=== PATIENT | female | born 1950 | race Hispanic/Latino ===

== ENCOUNTER 2017-01-20 20:08 | Emergency (ER) | payer MEDICARE, OTHER ==
[2017-01-20 21:28] LABS: Bilirubin Negative (Negative); Blood, Urine Negative (Negative); Glucose, Urine (Dipstick) Negative (Negative); Ketone, Urine Trace mg/dL (Negative); Nitrite Negative (Negative); Protein, Urine (Dipstick) Negative (Neg-Trace); Urobilinogen 0.2 mg/dL (0.2-1.0)
[2017-01-20 21:33] LABS: Bacteria/HPF 2+ HPF (None Seen); Hyaline Casts/LPF 0-3 HYALINE CAST LPF (0-3 Hyaline); RBC/HPF 0-3 HPF (0-3)
[2017-01-20] MEDS ORDERED: Ciprofloxacin 500 MG TAB ONE (21:52)
== END 2017-01-20 22:18 | disposition home or self-care (01) ==
LOC: SCSER 20:08
DX: G89.29 Other chronic pain (principal); M54.5 Low back pain; E78.5 Hyperlipidemia, unspecified; E11.9 Type 2 diabetes mellitus without complications; I11.0 Hypertensive heart disease with heart failure; I50.9 Heart failure, unspecified; F32.9 Major depressive disorder, single episode, unspecified
CPT/HCPCS: 81003; 81015; 87086; 96372; J2270

== ENCOUNTER 2017-05-30 14:38 | Outpatient (CLI) | payer MEDICARE, MEDICAID | END 2017-05-30 14:39 | disposition home or self-care (01) | LOC: CTENTCT 14:38 | PROVIDERS: ATTEND Specialist | DX: J32.8 Other chronic sinusitis (principal) | CPT/HCPCS: 70486 ==

== ENCOUNTER 2017-07-22 09:47 | Outpatient (CLI) | payer MEDICARE, MEDICAID ==
--- NOTE | 2017-07-22 12:10 | MRI ---
MRI BRAIN WITH AND WITHOUT IV CONTRAST: Date: 07/22/17 HISTORY: Ataxia. COMPARISON: 10/20/16. FINDINGS: No evidence of infarct, hemorrhage, mass, midline shift, or abnormal extra-axial fluid collections ar e seen. The ventricular size is normal and the basilar cisterns are patent. A partially empty sella i s again seen. There is a small amount of fluid in the right mastoid air cells. IMPRESSION: Normal MRI of the brain. Stable exam since 10/20/16. POS: [facility]
== END 2017-07-22 09:48 | disposition home or self-care (01) ==
LOC: SCSMRI 09:47
PROVIDERS: ATTEND Psychiatry & Neurology Neurology
DX: R27.0 Ataxia, unspecified (principal)
CPT/HCPCS: 70553; 82565

== ENCOUNTER 2017-08-27 12:03 | Outpatient (CLI) | payer MEDICARE, MEDICAID | END 2017-08-27 12:04 | disposition home or self-care (01) | LOC: BICMAMMO 12:03 | PROVIDERS: ATTEND Physician Assistant | DX: Z12.31 Encounter for screening mammogram for malignant neoplasm of breast (principal); R92.1 Mammographic calcification found on diagnostic imaging of breast | CPT/HCPCS: 77063; 77067 ==

== ENCOUNTER 2017-10-06 12:56 | Emergency (ER) | payer MEDICARE, MEDICAID | END 2017-10-06 14:12 | disposition left against medical advice (07) | LOC: ERS 12:56 | DX: Z53.21 Procedure and treatment not carried out due to patient leaving prior to being seen by health care provider (principal) ==

== ENCOUNTER 2017-10-06 13:47 | Emergency (ER) | payer MEDICARE, MEDICAID ==
[2017-10-06 14:41] LABS: #Eosinphils 0.1 thou/uL (0.0-0.7); #Lymphocytes 1.4 thou/uL (1.20-3.40); #Monocytes 0.3 thou/uL (0.11-0.59); #Neutrophils 3.5 thou/uL (1.40-6.50); %Basophils 0.8 % (0.0-1.0); %Eosinophils 2.7 % (0.0-10.0); %Neutrophils 64.5 % (42.0-75.0); Hemoglobin 10.7 g/dL (12.0-16.0); Mean Corpuscular HGB CONC 32.9 g/dL (32.0-36.0); Mean Corpuscular Hemoglobin 28.1 pg (27.0-31.0); Mean Corpuscular Volume 85.3 fL (78.0-98.0); Mean Platelet Volume 9.8 fL (7.4-10.4); Platelet Count 158 thou/uL (130-400); Red Blood Cell (RBC) Count 3.83 mill/uL (4.20-5.40); White Blood Cell (WBC) Count 5.5 thou/uL (4.8-10.8)
[2017-10-06 14:54] LABS: ALT (SGPT) 14 U/L (8-55); AST (SGOT) 22 U/L (5-34); Albumin 3.8 g/dL (3.4-4.8); Alkaline Phosphatase 95 U/L (40-150); Anion Gap 11 mmol/L (10-20); BUN (Urea Nitrogen) 18 mg/dL (9.8-20.1); Bilirubin, Total 0.4 mg/dL (0.2-1.2); Calc. Creatinine Clearance 0 mL/min (70-130); Calcium 8.5 mg/dL (7.8-10.44); Carbon Dioxide 27 mmol/L (23-31); Chloride 106 mmol/L (98-107); Estimated GFR-MDRD 76; Globulin 1.9 g/dL (2.4-3.5); Glucose 147 mg/dL (80-115); Potassium 4.1 mmol/L (3.5-5.1); Protein, Total 5.7 g/dL (6.0-8.3); Sodium 140 mmol/L (136-145)
[2017-10-06 14:58] LABS: CKMB 1.9 ng/mL (0-6.6); Troponin I Less than 0.010 ng/mL (< 0.028)
[2017-10-06 15:17] LABS: Bilirubin Negative (Negative); Blood, Urine Negative (Negative); Clarity Clear (Clear); Glucose, Urine (Dipstick) Negative (Negative); Leukocyte Negative (Negative); Nitrite Negative (Negative); Protein, Urine (Dipstick) Negative (Neg-Trace); Specific Gravity, Urine 1.008 (1.002-1.036); Urobilinogen 0.2 mg/dL (0.2-1.0); pH, Urine 5.5 (5.0-9.0)
== END 2017-10-06 15:20 | disposition home or self-care (01) ==
LOC: SCSER 13:47
DX: D64.9 Anemia, unspecified (principal); I10 Essential (primary) hypertension; E78.00 Pure hypercholesterolemia, unspecified; E11.9 Type 2 diabetes mellitus without complications
CPT/HCPCS: 80053; 81003; 82553; 84484; 85025; 93005

== ENCOUNTER 2017-12-16 10:51 | Observation (INO) | payer MEDICARE, MEDICAID ==
[2017-12-16 11:16] LABS: #Eosinphils 0.1 thou/uL (0.0-0.7); #Monocytes 0.3 thou/uL (0.11-0.59); #Neutrophils 2.4 thou/uL (1.40-6.50); %Basophils 0.5 % (0.0-1.0); %Eosinophils 2.8 % (0.0-10.0); %Lymphocytes 27.1 % (21.0-51.0); %Monocytes 8.1 % (0.0-10.0); %Neutrophils 61.4 % (42.0-75.0); Hemoglobin 12.2 g/dL (12.0-16.0); Mean Corpuscular Hemoglobin 28.8 pg (27.0-31.0); Mean Corpuscular Volume 90.2 fL (78.0-98.0); Mean Platelet Volume 8.6 fL (7.4-10.4); Platelet Count 179 thou/uL (130-400); RBC Distribution Width 12.6 % (11.5-14.5); Red Blood Cell (RBC) Count 4.22 mill/uL (4.20-5.40); White Blood Cell (WBC) Count 3.9 thou/uL (4.8-10.8)
--- NOTE | 2017-12-16 11:39 | RAD ---
CHEST 1 VIEW PORTABLE: Date: 12/16/17 HISTORY: 67-year-old female with history of syncope. COMPARISON: 10/19/16. FINDINGS: Heart size is within normal limits. No confluent pneumonia, overt edema, or pleural effusion. IMPRESSION: No acute intrathoracic disease. Atherosclerosis of aorta. POS: [facility]
[2017-12-16 11:44] LABS: CKMB 1.5 ng/mL (0-6.6); Troponin I Less than 0.010 ng/mL (< 0.028)
[2017-12-16 12:53] LABS: Albumin 3.9 g/dL (3.4-4.8)
[2017-12-16 12:54] LABS: Chloride 104 mmol/L (98-107); Potassium 4.1 mmol/L (3.5-5.1)
[2017-12-16 12:55] LABS: Calcium 8.8 mg/dL (7.8-10.44); Sodium 140 mmol/L (136-145)
[2017-12-16 12:56] LABS: Globulin 2.4 g/dL (2.4-3.5); Glucose 125 mg/dL (80-115); Protein, Total 6.3 g/dL (6.0-8.3)
[2017-12-16 12:57] LABS: Anion Gap 11 mmol/L (10-20); Carbon Dioxide 29 mmol/L (23-31)
[2017-12-16 12:58] LABS: Bilirubin, Total 0.4 mg/dL (0.2-1.2)
[2017-12-16 12:59] LABS: Alkaline Phosphatase 107 U/L (40-150); Calc. Creatinine Clearance 0 mL/min (70-130); Estimated GFR-MDRD 64
[2017-12-16 13:00] LABS: BUN (Urea Nitrogen) 13 mg/dL (9.8-20.1)
[2017-12-16 13:01] LABS: AST (SGOT) 23 U/L (5-34)
[2017-12-16 13:02] LABS: ALT (SGPT) 16 U/L (8-55); CK (CPK) 130 U/L (29-168)
[2017-12-16 13:11] LABS: Bilirubin Negative (Negative); Blood, Urine Negative (Negative); Clarity CLEAR (Clear); Glucose, Urine (Dipstick) Negative (Negative); Leukocyte Negative (Negative); Nitrite Negative (Negative); Protein, Urine (Dipstick) Negative (Neg-Trace); Specific Gravity, Urine 1.007 (1.002-1.036); Urobilinogen 0.2 mg/dL (0.2-1.0)
[2017-12-16 15:07] LABS: Troponin I Less than 0.010 ng/mL (< 0.028)
[2017-12-16 15:31] VITALS: BMI 36.3
[2017-12-16] MEDS ORDERED: Nitroglycerin 0.4 MG TAB (25 Tab Bottle) PO PRN (17:35)
[2017-12-16] MEDS ORDERED: Insulin Regular 300 UNITS/3 ML VIAL SC PRN ×2 (17:35)
[2017-12-16] MEDS ORDERED: Dextrose 50% Abboject 50 ML SYRINGE SLOW IVP PRN (17:35)
[2017-12-16] MEDS ORDERED: Dextrose 5% in Water 1,000 ML IV PRN (17:35)
[2017-12-16] MEDS ORDERED: Senokot 8.6 MG TAB PO PRN (17:36)
[2017-12-16] MEDS ORDERED: Acetaminophen 325 MG TAB PO PRN (17:36)
[2017-12-16] MEDS ORDERED: Calcium Carbonate 500 MG ChewTAB PO PRN (17:36)
[2017-12-16] MEDS ORDERED: HYDROcodone/Acetaminophen 5/325 mg Tablet PO PRN (17:42)
[2017-12-16 17:51] LABS: Troponin I Less than 0.010 ng/mL (< 0.028)
--- NOTE | 2017-12-16 18:00 | HP ---
DATE OF ADMISSION: 12/16/2017 PRIMARY CARE PHYSICIAN: Dr. Candy Islas. PRIMARY TRAFFIC OPERATIONS MANAGER: Dr. Garces. CHIEF COMPLAINT: Chest discomfort along with syncopal episode earlier today. HISTORY OF PRESENT ILLNESS: The patient is a 67-year-old female with hypertension; diabetes mellitus, type 2; presented to the emergency room with above complaints. Approximately 2 weeks ago, the patient had a stress test at Dr. Garces's office that was abnormal per patient report. She has been having exertional shortness of breath along with chest pressure on and off over the last 3-4 weeks. Yesterday, she had a brief episode of near syncope. She had anothe r episode in which she lost consciousness for 1-2 seconds. She denies any warning symptoms before th e episodes. She was trying to sit in the car at that time. She continues to have on and off chest p ressure without any palpitations. She has been feeling generally weak. The family also noticed that heart rate is in 40s, especially in the morning. No double vision, blurring of vision, facial asymm etry, weakness, numbness of any of the extremities more than the other reported. In the emergency room, her initial vital signs showed temperature 99.2, respiration 18, pulse rate of 70, blood pressure of 166/86 with O2 saturation 98% on room air. Her EKG showed sinus rhythm withou t significant ST-T wave changes. Her troponins were in normal range. PAST MEDICAL HISTORY: 1. Hypertension. 2. Diabetes mellitus, type 2. 3. Dyslipidemia. 4. Chronic low back pain. 5. History of H. pylori infection. 6. Gastroesophageal reflux disease. 7. Anxiety, depression. PAST SURGICAL HISTORY: Hysterectomy. ALLERGIES: The patient is allergic to AMOXICILLIN. CURRENT HOME MEDICATIONS: Family to bring the accurate list of medication. She is unable to recall any of her home medications. SOCIAL HISTORY: She currently lives at home. No tobacco, alcohol or drug use. FAMILY HISTORY: Positive for diabetes and hypertension. REVIEW OF SYSTEMS: The following complete review of systems was negative, unless otherwise mentioned in the HPI or below: Constitutional: Weight loss or gain, ability to conduct usual activities. Sk in: Rash, itching. Eyes: Double vision, pain. ENT/Mouth: Nose bleeding, neck stiffness, pain, te nderness. Cardiovascular: Palpitations, dyspnea on exertion, orthopnea. Respiratory: Shortness of breath, wheezing, cough, hemoptysis, fever or night sweats. Gastrointestinal: Poor appetite, abdom inal pain, heartburn, nausea, vomiting, constipation, or diarrhea. Genitourinary: Urgency, frequenc y, dysuria, nocturia. Musculoskeletal: Pain, swelling. Neurologic/Psychiatric: Anxiety, depressio n. Allergy/Immunologic: Skin rash, bleeding tendency. PHYSICAL EXAMINATION: VITAL SIGNS: As discussed above. GENERAL: A 67-year-old female, in no apparent distress. HEENT: Head atraumatic, normocephalic. Sclerae are anicteric. Moist mucous membrane, no oral lesio n. NECK: Supple, no JVD, no carotid bruit. LUNGS: Clear to auscultation bilaterally. No wheezing, rales or rhonchi. HEART: S1, S2 present. Regular rate and rhythm. No murmur, rubs, or gallops appreciated. ABDOMEN: Soft, nontender, bowel sounds present. EXTREMITIES: No edema or calf tenderness. NEUROLOGIC: Grossly nonfocal, moves all four extremities. Power was 5/5 in all extremities. Finger -to-nose test was normal. PSYCHIATRY: Alert, awake, oriented x3. SKIN: Warm and dry. LYMPH NODES: No palpable lymph nodes in the neck. PERIPHERAL VASCULAR: Radial pulses palpable bilaterally. MUSCULOSKELETAL: No joint swelling or tenderness. LABORATORY AND X-RAY FINDINGS: CBC showed WBC 3.9 with hemoglobin 12.2, platelet 179. Chemistries s howed sodium 140, potassium 4.1, chloride 104, bicarbonate 29, BUN 13, creatinine 0.88. LFTs in norm al range. Magnesium 2.0. Troponin negative. Urinalysis was negative. Chest x-ray by my review was negative for infiltrate. EKG by my review showed sinus rhythm. IMPRESSION: 1. Chest discomfort with syncope in a 67-year-old female with hypertension and diabetes mellitus, ty pe 2. Per patient report, she had a negative stress test recently. The patient will be kept n.p.o. past midnight and Cardiology will be consulted. We will continue aspirin. We will resume her home m edications once confirmed. 2. Hypertension. We will continue to monitor. Home medications unavailable at this time. 3. Diabetes mellitus, type 2. We will start insulin sliding scale. 4. Obesity with a BMI of 36.4. Lifestyle modification emphasized. 5. Chronic kidney disease, stage 2. 6. Chronic low back pain. 7. Gastroesophageal reflux disease. We will start her on H2 blockers. 8. Anxiety, depression. The patient denies any suicidal ideation. Plan of care was discussed with the patient and the family in detail. They stated understanding.
--- NOTE | 2017-12-16 18:39 | CON ---
DATE OF CONSULTATION: 12/16/2017 REASON FOR CONSULTATION: ? syncope. HISTORY OF PRESENT ILLNESS: Ms. Moore is a pleasant 67-year-old woman who I have seen and evaluat ed in the past. She had shortness of breath in the past. She underwent a noninvasive stress study t hat was felt to be positive for ischemia. I called her on Friday and discussed the angiography. I d id discuss this with her daughter. Ms. Moore has been in normal state of health. No chest pain or pressure noted. She did have an e pisode of syncope, although the episode is somewhat vague. She was in the past passed out for less than 2 seconds and came to. She presented to the emergency room and was subsequently admitted. CK and troponins have so far been negative. PAST MEDICAL HISTORY: Recent stress test dated 10/27/2017 showed anterior wall ischemia. PHYSICAL EXAMINATION: VITAL SIGNS: Blood pressure is 154/67, pulse 60, temperature afebrile. GENERAL: Patient is a pleasant female who is in no acute distress. The patient appears her stated age. NEUROLOGIC: The patient is alert and oriented times 3 with no focal neurologic deficits. HEENT: Sclerae without icterus. Mouth has moist mucous membranes with normal pallor. NECK: No JVD. Carotid upstroke brisk. No bruits bilaterally. LUNGS: Clear to auscultation with unlabored respirations. BACK: No scoliosis or kyphosis. CARDIAC: Regular rate and rhythm with normal S1 and S2. No S3 or S4 noted. No significant rubs, murmurs, thrills, or gallops noted throughout the precordium. PMI is not displa alecia. There is no parasternal heave. ABDOMEN: Soft, nontender, nondistended. No peritoneal signs present. No hepatosplenomegaly. No abnormal striae. EXTREMITIES: 2+ femoral and 2+ dorsalis pedis pulses. No cyanosis, clubbing, or edema. SKIN: No gross abnormalities. PERTINENT LABS: CK and troponin negative. IMPRESSION: 1. ? syncope. 2. Shortness of breath. 3. Abnormal stress test. RECOMMENDATIONS: Ms. Moore's symptoms are somewhat vague. She had syncope? for 2 seconds. No ch est pain or pressure noted. At this point, I recommend close observation. She has had bradycardia. Would discontinue Coreg. I am out of the office tomorrow. I did state that we could proceed with a ngiography on Friday. We will proceed with angiography on Friday as long she ruled out by CKbrannonon in and her rate is stable overnight. She is agreeable. I discussed coronary angiography in full det ail, risks included, not limited to the . All questions answered. I also discussed drug-coated versus nondrug stent placement. There are no contraindications, and we will proceed if needed. Fur ther recommendations pending the above.
[2017-12-16] MEDS: Docusate 100 MG CAP PO SCH (20:54)
[2017-12-16] MEDS: Famotidine 20 MG TAB PO SCH (20:54)
[2017-12-16] MEDS ORDERED: Zolpidem Tartrate 5 MG TAB PO SCH (22:30)
[2017-12-16] MEDS ORDERED: Atorvastatin Calcium 40 MG TAB PO SCH (22:30)
[2017-12-16] MEDS ORDERED: Carvedilol 3.125 MG TAB PO SCH (22:30)
[2017-12-17 07:58] VITALS: BP 159/71; TEMP 97.8
[2017-12-17] MEDS ORDERED: Carvedilol 3.125 MG TAB PO SCH (08:00)
[2017-12-17] MEDS: Docusate 100 MG CAP PO SCH (08:42)
[2017-12-17] MEDS: Famotidine 20 MG TAB PO SCH (08:42)
[2017-12-17] MEDS ORDERED: Lisinopril 2.5 MG TAB PO SCH (09:00)
[2017-12-17] MEDS ORDERED: Aspirin 325 MG TAB PO SCH (09:00)
[2017-12-17] MEDS ORDERED: Non-Formulary Item 1 EACH (Sertraline Hcl [Sertraline Hcl] 50 MG) PO SCH (09:00)
[2017-12-17] MEDS ORDERED: Pioglitazone HCl 15 MG TAB PO SCH (09:00)
[2017-12-17] MEDS ORDERED: Pregabalin 75 MG CAP PO SCH (09:00)
[2017-12-17] MEDS ORDERED: Non-Formulary Item 1 EACH (Linaclotide [Linzess] 290 MCG) PO SCH (09:00)
[2017-12-17] MEDS ORDERED: Non-Formulary Item 1 EACH (Pioglitazone Hcl [Pioglitazone Hcl] 30 MG) PO SCH (09:00)
[2017-12-17] MEDS ORDERED: ALPRAZolam 0.25 MG TAB PO SCH (09:00)
--- NOTE | 2017-12-17 12:55 | DIS ---
DATE OF ADMISSION: 12/16/2017 DATE OF DISCHARGE: 12/17/2017 CONDITION AT THE TIME OF DISCHARGE: Stable and improved. DISCHARGE DISPOSITION: Home. PRIMARY CARE PHYSICIAN: Candy Islas. PRIMARY MERCURY RECOVERER: Dr. Garces. DISCHARGE DIAGNOSES: 1. Question of syncope. 2. Acute coronary syndrome ruled out. SECONDARY DISCHARGE DIAGNOSES: 1. Hypertension. 2. Diabetes mellitus. 3. Dyslipidemia. 4. Chronic back pain. 5. Helicobacter pylori infection. 6. GERD. 7. Anxiety and depression. DISCHARGE MEDICATIONS: Remain the same as admission medication. Please see admission history and ph ysical for further detail. At this time, her carvedilol has been put on hold as per Cardiology instr uctions until her cardiac catheterization. New medication, sublingual nitroglycerin 0.4 mg every 5 m inutes as needed for chest discomfort. INHOUSE CONSULTATIONS: Cardiology, Dr. Garces. PROCEDURE: Chest x-ray which was unremarkable on presentation. HISTORY OF PRESENTING ILLNESS: Ms. Moore is a 67-year-old female with known history of GERD, diab etes, hypertension, and dyslipidemia who presented to the emergency room with one episode of chest di scomfort along with a syncopal episode of 1-2 second duration. EKG showed sinus rhythm. Vital signs are stable. Cardiac enzymes were unremarkable. She was admitted for further evaluation under obser vation status. Apparently, patient has had a stress test done recently which the results were not av ailable at the time of admission. Cardiology was consulted and home medications including aspirin, b eta yadira, and BISI inhibitor were restarted. Please see admission history and physical for further details. HOSPITAL COURSE: The patient remained hemodynamically stable throughout the rest of her hospitalizat ion. She had no arrhythmias on telemetry monitoring. Cardiac enzymes were trended and remained nega tive. Vital signs remained stable. Serum chemistries and CBC was unremarkable. She was seen by Dr. Garces from Cardiology who reported that her stress test done as an outpatient was actually abnormal. It apparently showed ischemia and she would require a cardiac catheterizatio n. ACS was ruled out and the plan is for her to undergo coronary angiography this coming Friday, tod ay being Friday. She is now asymptomatic and is cleared for discharge by Cardiology for outpatien t angiography as above. She is found to have some bradycardia in the 50s range, but rather asymptoma tic. Because of the syncopal episode, Coreg has been put on hold as per Cardiology recommendations. She was seen and examined prior to discharge. She has no new complaints and feeling well. PHYSICAL EXAMINATION: VITAL SIGNS: This morning, temperature 97.8, pulse of 52-56, blood pressure 159/71, respirations 16, saturating 97% on room air. GENERAL: No acute distress, awake, alert, oriented x3. CHEST: Clear to auscultation bilaterally. Rate and rhythm is regular. Discharge plan was discussed with the patient and multiple family members present in the room. They verbalized understanding. She was given sublingual nitroglycerin p.r.n. prescription for symptoms of angina and she was educated about the symptoms.
--- NOTE | 2017-12-17 16:53 | EKG ---
Test Reason : Blood Pressure : / mmHG Vent. Rate : 064 BPM Atrial Rate : 064 BPM P-R Int : 166 ms QRS Dur : 088 ms QT Int : 410 ms P-R-T Axes : 021 001 033 degrees QTc Int : 422 ms Normal sinus rhythm Normal ECG Confirmed by JR MANE, DR. Ron ([id number]) on 12/17/2017 4:52:56 PM Referred By: Confirmed By:DR. Asaf NORRIS MD
[2017-12-17] MEDS ORDERED: Zolpidem Tartrate 5 MG TAB PO SCH (21:00)
[2017-12-17] MEDS ORDERED: Atorvastatin Calcium 40 MG TAB PO SCH ×2 (21:00)
== END 2017-12-17 11:27 | disposition home or self-care (01) ==
LOC: ERS 10:51 → 2SW 13:49
PROVIDERS: ADMIT Internal Medicine; ATTEND Internal Medicine
DX: R07.89 Other chest pain (principal); R55 Syncope and collapse; E78.5 Hyperlipidemia, unspecified; G89.29 Other chronic pain; M54.9 Dorsalgia, unspecified; K21.9 Gastro-esophageal reflux disease without esophagitis; F41.8 Other specified anxiety disorders; I12.9 Hypertensive chronic kidney disease with stage 1 through stage 4 chronic kidney disease, or unspecified chronic kidney disease; E11.22 Type 2 diabetes mellitus with diabetic chronic kidney disease; N18.2 Chronic kidney disease, stage 2 (mild); E66.9 Obesity, unspecified; Z68.36 Body mass index [BMI] 36.0-36.9, adult; Z79.4 Long term (current) use of insulin; Z79.82 Long term (current) use of aspirin; Z79.899 Other long term (current) drug therapy; Z88.0 Allergy status to penicillin
CPT/HCPCS: 71045; 80053; 81003; 82550; 82553; 82962 ×2; 83735; 84484 ×2; 85025; 93005; 99285; G0378; 36415; 36416

== ENCOUNTER 2017-12-22 06:04 | Day surgery (SDC) | payer MEDICARE, MEDICAID ==
[2017-12-19 11:51] VITALS: BMI 34.5
[2017-12-22] MEDS ORDERED: Diazepam 5 MG TAB ONE (06:18)
[2017-12-22] MEDS ORDERED: Sodium Chloride 0.9% 1,000 ML IV SCH (06:30)
[2017-12-22] MEDS ORDERED: HOLD HYPOGLYCEMIC MEDS AM OF CATH FS SCH (06:30)
[2017-12-22] MEDS ORDERED: Diazepam 5 MG TAB PO SCH (06:30)
[2017-12-22] MEDS ORDERED: Lidocaine 1% (PF) 30 ML VIAL ONE (06:56)
[2017-12-22] MEDS ORDERED: Fentanyl 100 MCG/2 ML VIAL ONE (07:26)
[2017-12-22] MEDS ORDERED: Midazolam HCl 2 mg/2 ml Vial ONE (07:26)
[2017-12-22] MEDS ORDERED: Verapamil 5 MG/2 ML VIAL ONE (07:30)
[2017-12-22] MEDS ORDERED: Nitroglycerin 100MG/250ML BOT 250 ML ONE (07:30)
[2017-12-22] MEDS ORDERED: Heparin 10,000 UNITS/1 ML VIAL ONE (07:30)
[2017-12-22] MEDS ORDERED: Iopamidol 370 76% 100 ML VIAL ONE (09:24)
[2017-12-22] MEDS ORDERED: Acetaminophen/Codeine 30-300mg Tablet ONE (09:30)
[2017-12-22] MEDS ORDERED: DC ENOXAPARIN NIGHT BEFORE CATH FS SCH (22:00)
== END 2017-12-22 13:26 | disposition home or self-care (01) ==
LOC: CCL 06:04
PROVIDERS: ATTEND Internal Medicine Cardiovascular Disease
PROC: 4A023N7 Measurement of Cardiac Sampling and Pressure, Left Heart, Percutaneous Approach (ICD-10-PCS; principal; 2017-12-22)
PROC: B2111ZZ Fluoroscopy of Multiple Coronary Arteries using Low Osmolar Contrast (ICD-10-PCS; 2017-12-22)
DX: R06.02 Shortness of breath (principal); R06.09 Other forms of dyspnea; E78.00 Pure hypercholesterolemia, unspecified; I10 Essential (primary) hypertension; E11.9 Type 2 diabetes mellitus without complications; I73.9 Peripheral vascular disease, unspecified; E78.5 Hyperlipidemia, unspecified; Z79.4 Long term (current) use of insulin; Z79.82 Long term (current) use of aspirin; Z79.899 Other long term (current) drug therapy; Z88.0 Allergy status to penicillin
CPT/HCPCS: 93458; C1760; C1769 ×2; C1887; J1644; J2001; J2250; J3010

== ENCOUNTER 2018-03-26 13:50 | Emergency (ER) | payer MEDICARE, MEDICAID | END 2018-03-26 14:18 | disposition home or self-care (01) | LOC: SCSER 13:50 | DX: J06.9 Acute upper respiratory infection, unspecified (principal); I10 Essential (primary) hypertension; E11.9 Type 2 diabetes mellitus without complications; F41.9 Anxiety disorder, unspecified; F32.9 Major depressive disorder, single episode, unspecified; Z79.899 Other long term (current) drug therapy; Z79.82 Long term (current) use of aspirin | CPT/HCPCS: 99283 ==

== ENCOUNTER 2018-04-03 09:48 | Emergency (ER) | payer MEDICARE, OTHER ==
[2018-04-03 10:08] LABS: Bilirubin Negative (Negative); Blood, Urine Negative (Negative); Clarity CLOUDY (Clear); Glucose, Urine (Dipstick) Negative (Negative); Leukocyte Moderate (Negative); Nitrite Negative (Negative); Protein, Urine (Dipstick) Negative (Neg-Trace); Specific Gravity, Urine 1.014 (1.002-1.036); Urobilinogen 0.2 mg/dL (0.2-1.0)
[2018-04-03 10:11] LABS: Bacteria/HPF None Seen HPF (None Seen); Hyaline Casts/LPF 0-3 HYALINE CAST LPF (0-3 Hyaline); RBC/HPF 0-3 HPF (0-3)
[2018-04-03] MEDS ORDERED: Ketorolac Tromethamine 30 MG/ML VIAL ONE (10:53)
[2018-04-03] MEDS ORDERED: Methocarbamol 500 MG TAB PO SCH (11:00)
--- NOTE | 2018-04-03 11:21 | RAD ---
LUMBAR SPINE 3 VIEWS: Date: 04/03/18 PROVIDED CLINICAL HISTORY: Back pain. FINDINGS: Five non-rib bearing lumbar-type vertebral bodies are present. Lumbar alignment appears normal. Verte bral body heights are preserved. Multilevel disc degenerative changes are seen. Vascular calcificatio ns noted. Pedicles appear intact. IMPRESSION: Degenerative changes without radiographic evidence for an acute process. POS: [facility]
== END 2018-04-03 11:45 | disposition home or self-care (01) ==
LOC: ERS 09:48
DX: S39.012A Strain of muscle, fascia and tendon of lower back, initial encounter (principal); F41.9 Anxiety disorder, unspecified; F32.9 Major depressive disorder, single episode, unspecified; E11.9 Type 2 diabetes mellitus without complications; I10 Essential (primary) hypertension; I25.10 Atherosclerotic heart disease of native coronary artery without angina pectoris; E78.5 Hyperlipidemia, unspecified; X50.1XXA Overexertion from prolonged static or awkward postures, initial encounter
CPT/HCPCS: 72100; 81003; 81015; 87086; 96372; J1885

== ENCOUNTER 2018-04-15 13:51 | Emergency (ER) | payer MEDICARE, MEDICAID ==
[2018-04-15 14:59] LABS: #Eosinphils 0.1 thou/uL (0.0-0.7); #Lymphocytes 0.9 thou/uL (1.20-3.40); #Monocytes 0.3 thou/uL (0.11-0.59); #Neutrophils 3.7 thou/uL (1.40-6.50); %Basophils 0.6 % (0.0-1.0); %Eosinophils 1.7 % (0.0-10.0); %Lymphocytes 18.1 % (21.0-51.0); %Neutrophils 73.6 % (42.0-75.0); Hemoglobin 12.5 g/dL (12.0-16.0); Mean Corpuscular HGB CONC 31.4 g/dL (32.0-36.0); Mean Corpuscular Hemoglobin 28.7 pg (27.0-31.0); Mean Corpuscular Volume 91.2 fL (78.0-98.0); Platelet Count 191 thou/uL (130-400); RBC Distribution Width 12.8 % (11.5-14.5); Red Blood Cell (RBC) Count 4.36 mill/uL (4.20-5.40); White Blood Cell (WBC) Count 5.1 thou/uL (4.8-10.8)
[2018-04-15] MEDS ORDERED: diphenhydrAMINE 50 MG/ML VIAL ONE (15:13)
[2018-04-15] MEDS ORDERED: Metoclopramide HCl 10 MG/2 ML VIAL ONE ×2 (15:13→15:17)
[2018-04-15 15:21] LABS: ALT (SGPT) 17 U/L (8-55); AST (SGOT) 23 U/L (5-34); Albumin 4.6 g/dL (3.4-4.8); Alkaline Phosphatase 89 U/L (40-150); Anion Gap 14 mmol/L (10-20); BUN (Urea Nitrogen) 13 mg/dL (9.8-20.1); Bilirubin, Total 0.5 mg/dL (0.2-1.2); Calc. Creatinine Clearance 0 mL/min (70-130); Carbon Dioxide 26 mmol/L (23-31); Chloride 103 mmol/L (98-107); Estimated GFR-MDRD 70; Globulin 2.5 g/dL (2.4-3.5); Glucose 118 mg/dL (80-115); Potassium 4.2 mmol/L (3.5-5.1); Protein, Total 7.1 g/dL (6.0-8.3); Sodium 139 mmol/L (136-145)
--- NOTE | 2018-04-15 15:25 | CT ---
CT HEAD WITHOUT CONTRAST: Date: 04/15/18 Multiple axial tomograms obtained through the head without IV enhancement. INDICATION: Headache. COMPARISON: 05/11/17. FINDINGS: Ventricles have normal size and position. There is no evidence of intracranial hemorrhage or mass. No evidence of infarct. The visualized sinuses and mastoids appear well aerated. IMPRESSION: No acute process identified. POS: [facility]
== END 2018-04-15 15:55 | disposition home or self-care (01) ==
LOC: ERS 13:51
DX: R51 Headache (principal); E11.9 Type 2 diabetes mellitus without complications; E78.5 Hyperlipidemia, unspecified; I25.10 Atherosclerotic heart disease of native coronary artery without angina pectoris; F41.9 Anxiety disorder, unspecified; F32.9 Major depressive disorder, single episode, unspecified; Z79.891 Long term (current) use of opiate analgesic; Z79.899 Other long term (current) drug therapy
CPT/HCPCS: 70450; 80053; 85025; 96365; 96375; J1200; J2765

== ENCOUNTER 2018-06-02 09:52 | Outpatient (CLI) | payer MEDICARE, MEDICAID ==
--- NOTE | 2018-06-02 13:03 | ULT ---
RIGHT BREAST ULTRASOUND: HISTORY: Clear discharge from the right nipple. CORRELATION: Mammogram from the same day. FINDINGS: Sonographic evaluation of the retroareolar region of the right breast demonstrates no dilated duct or mass. IMPRESSION: BI-RADS category 2-Benign findings. Return to annual mammographic screening. If the right nipple discharge turns bloody, further evaluation with MRI should be performed. POS: [facility]
--- NOTE | 2018-06-03 15:32 | MMO ---
Right Breast MAMMO Unilat Diag [facility]. CLINICAL HISTORY: Patient is 68 years old and is seen for diagnostic exam and non-bloody discharge in the right breast. The patient has no family history of breast cancer. The patient has no personal history of cancer. VIEWS: The views performed were: right craniocaudal with tomosynthesis; right mediolateral oblique with tomosynthesis; and right mediolateral. FILMS COMPARED: The present examination has been compared to prior imaging studies performed at [facility] on 03/09/1999, 05/13/2003, 06/05/2005, 06/20/2006, 07/12/2008, 07/20/2010, 08/09/2011, 08/10/2013, 08/12/2014, 08/14/2015, 08/13/2016 and 06/02/2018. MAMMOGRAM FINDINGS: The breast is heterogeneously dense, which could obscure a lesion on mammography. Benign calcifications are noted bilaterally. There are no suspicious masses, calcifications or areas of architectural distortion. US of the right retroaerolar breast shows no abnormality. IMPRESSION: FINDING IN THE RIGHT BREAST IS BENIGN. A ROUTINE FOLLOW-UP MAMMOGRAM IN 1 YEAR IS RECOMMENDED. THE RESULTS OF THIS EXAM WERE SENT TO THE PATIENT. ACR BI-RADS Category 2 - Benign finding MAMMOGRAPHY NOTE: 1. A negative mammogram report should not delay a biopsy if a dominant of clinically suspicious mass is present. 2. Approximately 10% to 15% of breast cancers are not detected by mammography. 3. Adenosis and dense breasts may obscure an underlying neoplasm.
== END 2018-06-02 09:53 | disposition home or self-care (01) ==
LOC: BICMAMMO 09:52
PROVIDERS: ATTEND Physician Assistant
DX: N64.52 Nipple discharge (principal)
CPT/HCPCS: 76642; 77065; G0279

== ENCOUNTER 2018-07-07 11:53 | Emergency (ER) | payer MEDICARE, MEDICAID ==
[2018-07-07 13:00] LABS: #Basophils 0.1 thou/uL (0.0-0.2); #Eosinphils 0.1 thou/uL (0.0-0.7); #Lymphocytes 1.4 thou/uL (1.20-3.40); #Monocytes 0.4 thou/uL (0.11-0.59); #Neutrophils 3.3 thou/uL (1.40-6.50); %Basophils 1.1 % (0.0-1.0); %Eosinophils 1.8 % (0.0-10.0); %Lymphocytes 26.9 % (21.0-51.0); %Monocytes 7.7 % (0.0-10.0); %Neutrophils 62.5 % (42.0-75.0); Hemoglobin 11.7 g/dL (12.0-16.0); Mean Corpuscular HGB CONC 30.8 g/dL (32.0-36.0); Mean Corpuscular Hemoglobin 27.6 pg (27.0-31.0); Mean Corpuscular Volume 89.7 fL (78.0-98.0); Platelet Count 144 thou/uL (130-400); RBC Distribution Width 13.5 % (11.5-14.5); Red Blood Cell (RBC) Count 4.26 mill/uL (4.20-5.40); White Blood Cell (WBC) Count 5.3 thou/uL (4.8-10.8)
[2018-07-07 13:02] LABS: Bilirubin Negative (Negative); Blood, Urine Negative (Negative); Clarity Clear (Clear); Glucose, Urine (Dipstick) Negative (Negative); Leukocyte Small (Negative); Nitrite Negative (Negative); Protein, Urine (Dipstick) Negative (Neg-Trace); Urobilinogen 0.2 mg/dL (0.2-1.0)
[2018-07-07 13:09] LABS: Bacteria/HPF Rare-Few HPF (None Seen); RBC/HPF 0-3 HPF (0-3); WBC/HPF 0-3 HPF (0-3)
[2018-07-07 13:10] LABS: Crystals/HPF RARE URIC ACID HPF (Negative)
[2018-07-07 13:13] LABS: Opiate Screen Detected (NotDetected); Phencyclidine (PCP) Not Detected (NotDetected); THC/Cannabinoid Screen Not Detected (NotDetected)
[2018-07-07 13:14] LABS: Amphetamine Not Detected (NotDetected); Barbiturates Screen Not Detected (NotDetected); Benzodiazepine Screen Detected (NotDetected); Cocaine Metabolite Screen Not Detected (NotDetected); Medtox Control Line Valid? VALID (VALID); Methadone Not Detected (NotDetected); Methamphetamine Not Detected (NotDetected); Oxycodone Screen Not Detected (NotDetected); Tricyclic Screen Detected (NotDetected)
[2018-07-07 13:21] LABS: ALT (SGPT) 15 U/L (8-55); AST (SGOT) 20 U/L (5-34); Alkaline Phosphatase 97 U/L (40-150); Anion Gap 12 mmol/L (10-20); BUN (Urea Nitrogen) 15 mg/dL (9.8-20.1); Bilirubin, Total 0.4 mg/dL (0.2-1.2); Calc. Creatinine Clearance 0 mL/min (70-130); Carbon Dioxide 27 mmol/L (23-31); Chloride 104 mmol/L (98-107); Estimated GFR-MDRD 72; Glucose 134 mg/dL (80-115); Lipase 30 U/L (8-78); Potassium 3.7 mmol/L (3.5-5.1); Sodium 139 mmol/L (136-145)
== END 2018-07-07 14:30 | disposition home or self-care (01) ==
LOC: SCSER 11:53
DX: R40.0 Somnolence (principal); F11.90 Opioid use, unspecified, uncomplicated; F13.90 Sedative, hypnotic, or anxiolytic use, unspecified, uncomplicated; E11.9 Type 2 diabetes mellitus without complications; I11.0 Hypertensive heart disease with heart failure; I50.9 Heart failure, unspecified; I25.10 Atherosclerotic heart disease of native coronary artery without angina pectoris; E78.5 Hyperlipidemia, unspecified; F41.9 Anxiety disorder, unspecified; F32.9 Major depressive disorder, single episode, unspecified
CPT/HCPCS: 36415; 80053; 80306; 81003; 81015; 83605; 83690; 84443; 84484; 85025; 93005; 96360

== ENCOUNTER 2018-08-26 14:54 | Emergency (ER) | payer MEDICARE, MEDICAID | END 2018-08-26 15:57 | disposition home or self-care (01) | LOC: SCSER 14:54 | DX: M26.622 Arthralgia of left temporomandibular joint (principal); I11.0 Hypertensive heart disease with heart failure; I50.9 Heart failure, unspecified; E11.9 Type 2 diabetes mellitus without complications | CPT/HCPCS: 99282 ==

== ENCOUNTER 2019-01-08 12:46 | Outpatient (CLI) | payer MEDICARE, MEDICAID ==
--- NOTE | 2019-01-08 13:17 | MMO ---
Bilateral MAMMO Bilat Screen [facility]. CLINICAL HISTORY: Patient is 68 years old and is seen for screening. The patient has no family history of breast cancer. The patient has no personal history of cancer. VIEWS: The views performed were: bilateral craniocaudal with tomosynthesis and bilateral mediolateral oblique with tomosynthesis. FILMS COMPARED: The present examination has been compared to prior imaging studies performed at [facility] on 08/13/2016, 08/27/2017 and 06/02/2018. This study has been interpreted with the assistance of computer-aided detection. MAMMOGRAM FINDINGS: The breasts are heterogeneously dense, which could obscure a lesion on mammography. There are no suspicious masses, suspicious calcifications, or new areas of architectural distortion. IMPRESSION: THERE IS NO MAMMOGRAPHIC EVIDENCE OF MALIGNANCY. A ROUTINE FOLLOW-UP MAMMOGRAM IN 1 YEAR IS RECOMMENDED. THE RESULTS OF THIS EXAM WERE SENT TO THE PATIENT. ACR BI-RADS Category 1 - Negative MAMMOGRAPHY NOTE: 1. A negative mammogram report should not delay a biopsy if a dominant of clinically suspicious mass is present. 2. Approximately 10% to 15% of breast cancers are not detected by mammography. 3. Adenosis and dense breasts may obscure an underlying neoplasm. Reported by: JAMES PRABHAKAR MD Electonically Signed: [id number]
== END 2019-01-08 12:47 | disposition home or self-care (01) ==
LOC: BICMAMMO 12:46
PROVIDERS: ATTEND Family Medicine
DX: Z12.31 Encounter for screening mammogram for malignant neoplasm of breast (principal)
CPT/HCPCS: 77063; 77067

== ENCOUNTER 2019-05-26 11:03 | Outpatient (CLI) | payer MEDICARE, OTHER ==
--- NOTE | 2019-05-26 13:17 | MMO ---
Bilateral MAMMO Bilat Screen [facility]. CLINICAL HISTORY: Patient is 69 years old and is seen for screening. The patient has no family history of breast cancer. The patient has no personal history of cancer. VIEWS: The views performed were: bilateral craniocaudal with tomosynthesis and bilateral mediolateral oblique with tomosynthesis. FILMS COMPARED: The present examination has been compared to prior imaging studies performed at [facility] on 08/27/2017, 06/02/2018 and 01/08/2019. This study has been interpreted with the assistance of computer-aided detection. MAMMOGRAM FINDINGS: The breasts are heterogeneously dense, which could obscure a lesion on mammography. There are no suspicious masses, suspicious calcifications, or new areas of architectural distortion. IMPRESSION: THERE IS NO MAMMOGRAPHIC EVIDENCE OF MALIGNANCY. A ROUTINE FOLLOW-UP MAMMOGRAM IN 1 YEAR IS RECOMMENDED. THE RESULTS OF THIS EXAM WERE SENT TO THE PATIENT. ACR BI-RADS Category 1 - Negative MAMMOGRAPHY NOTE: 1. A negative mammogram report should not delay a biopsy if a dominant of clinically suspicious mass is present. 2. Approximately 10% to 15% of breast cancers are not detected by mammography. 3. Adenosis and dense breasts may obscure an underlying neoplasm. Reported by: JAMES PRABHAKAR MD Electonically Signed: [id number]
== END 2019-05-26 11:04 | disposition home or self-care (01) ==
LOC: BICMAMMO 11:03
PROVIDERS: ATTEND Physician Assistant
DX: Z12.31 Encounter for screening mammogram for malignant neoplasm of breast (principal)
CPT/HCPCS: 77063; 77067

== ENCOUNTER 2020-01-11 13:25 | Emergency (ER) | payer MEDICARE, MEDICAID ==
[2020-01-11] MEDS ORDERED: Ketorolac Tromethamine 30 MG/ML VIAL ONE (14:41)
[2020-01-11 15:29] LABS: Bacteria/HPF 3+ HPF (None Seen); Bilirubin Negative (Negative); Blood, Urine Negative (Negative); Clarity Clear (Clear); Glucose, Urine (Dipstick) Normal (Negative); Ketone, Urine Negative (Negative); Leukocyte 75 Leu/uL (Negative); Mucous/LPF 1+ LPF (<2+); Nitrite Negative (Negative); Protein, Urine (Dipstick) Negative (Neg-Trace); RBC/HPF 0-3 HPF (0-3); Specific Gravity, Urine 1.014 (1.002-1.036); Squamous Epithelial None Seen HPF (0-3); Urobilinogen Normal mg/dL (Less than 2); pH, Urine 6.5 (5.0-9.0)
[2020-01-11 15:29] LABS: #Eosinphils 0.1 thou/uL (0.0-0.7); #Lymphocytes 0.8 thou/uL (1.20-3.40); #Monocytes 0.3 thou/uL (0.11-0.59); %Eosinophils 2.2 % (0.0-10.0); %Lymphocytes 24.4 % (21.0-51.0); %Monocytes 8.9 % (0.0-10.0); %Neutrophils 63.5 % (42.0-75.0); Hemoglobin 11.2 g/dL (12.0-16.0); Mean Corpuscular HGB CONC 33.5 g/dL (32.0-36.0); Mean Corpuscular Hemoglobin 29.7 pg (27.0-31.0); Mean Corpuscular Volume 88.6 fL (78.0-98.0); Mean Platelet Volume 8.7 fL (7.4-10.4); Platelet Count 180 thou/uL (130-400); RBC Distribution Width 12.1 % (11.5-14.5); Red Blood Cell (RBC) Count 3.77 mill/uL (4.20-5.40); White Blood Cell (WBC) Count 3.2 thou/uL (4.8-10.8)
[2020-01-11 15:49] LABS: Albumin 3.5 g/dL (3.4-4.8)
[2020-01-11 15:50] LABS: Chloride 100 mmol/L (98-107); Potassium 4.8 mmol/L (3.5-5.1); Sodium 129 mmol/L (136-145)
[2020-01-11 15:52] LABS: Globulin 3.3 g/dL (2.4-3.5); Glucose 118 mg/dL (80-115); Protein, Total 6.8 g/dL (6.0-8.3)
[2020-01-11 15:53] LABS: Anion Gap 20 mmol/L (10-20); Bilirubin, Total 0.4 mg/dL (0.2-1.2); Carbon Dioxide 14 mmol/L (23-31)
[2020-01-11 15:54] LABS: Alkaline Phosphatase 143 U/L (40-110)
[2020-01-11 15:55] LABS: Calc. Creatinine Clearance 0 mL/min (70-130); Estimated GFR-MDRD 79
[2020-01-11 15:56] LABS: BUN (Urea Nitrogen) 8 mg/dL (9.8-20.1)
[2020-01-11 15:57] LABS: ALT (SGPT) 91 U/L (8-55); AST (SGOT) 49 U/L (5-34)
== END 2020-01-11 16:19 | disposition short-term general hospital (02) ==
LOC: ERS 13:25
DX: N39.0 Urinary tract infection, site not specified (principal); I25.10 Atherosclerotic heart disease of native coronary artery without angina pectoris; I11.0 Hypertensive heart disease with heart failure; I50.9 Heart failure, unspecified; E11.9 Type 2 diabetes mellitus without complications; E78.5 Hyperlipidemia, unspecified; E78.00 Pure hypercholesterolemia, unspecified; F41.9 Anxiety disorder, unspecified; F32.9 Major depressive disorder, single episode, unspecified; Z79.899 Other long term (current) drug therapy
CPT/HCPCS: 36415; 80053; 81003; 81015; 85025; 87077; 87086; 87186; 96372; 99283; J1885

== ENCOUNTER 2020-02-15 09:18 | Outpatient (CLI) | payer MEDICARE, MEDICAID ==
--- NOTE | 2020-02-15 10:00 | MMO ---
Bilateral MAMMO Bilat Diag [facility]. CLINICAL HISTORY: Patient is 69 years old and is seen for diagnostic exam and non-bloody discharge in both breasts. The patient has no family history of breast cancer. The patient has no personal history of cancer. VIEWS: The views performed were: bilateral craniocaudal with tomosynthesis; bilateral mediolateral oblique with tomosynthesis; and bilateral mediolateral with tomosynthesis. FILMS COMPARED: The present examination has been compared to prior imaging studies performed at [facility] on 01/08/2019, 05/26/2019 and 02/15/2020. This study has been interpreted with the assistance of computer-aided detection. MAMMOGRAM FINDINGS: The breasts are heterogeneously dense, which could obscure a lesion on mammography. Benign calcifications are noted bilaterally. US of the retroaerolar breasts shows no abnormality. There are no suspicious masses, suspicious calcifications, or new areas of architectural distortion. IMPRESSION: THERE IS NO MAMMOGRAPHIC EVIDENCE OF MALIGNANCY. A ROUTINE FOLLOW-UP MAMMOGRAM IN 1 YEAR IS RECOMMENDED. THE RESULTS OF THIS EXAM WERE SENT TO THE PATIENT. ACR BI-RADS Category 2 - Benign finding MAMMOGRAPHY NOTE: 1. A negative mammogram report should not delay a biopsy if a dominant of clinically suspicious mass is present. 2. Approximately 10% to 15% of breast cancers are not detected by mammography. 3. Adenosis and dense breasts may obscure an underlying neoplasm. Reported by: HUBERT RODRIGUEZ MD Electonically Signed: [id number]
--- NOTE | 2020-02-15 10:09 | ULT ---
LIMITED RIGHT BREAST ULTRASOUND LIMITED LEFT BREAST ULTRASOUND: HISTORY: Bilateral clear nipple discharge which has resolved. FINDINGS: Correlation is made with the mammograms of same date. Sonographic evaluation of the retroareolar regions of the breast was performed bilaterally. No abnor mality is seen. IMPRESSION: BIRADS category 2 - benign findings. Return to annual mammographic screening. POS: [facility]
== END 2020-02-15 09:19 | disposition home or self-care (01) ==
LOC: BICMAMMO 09:18
PROVIDERS: ATTEND Physician Assistant
DX: N64.3 Galactorrhea not associated with childbirth (principal)
CPT/HCPCS: 76642 ×2; 77066; G0279

== ENCOUNTER 2021-02-21 10:01 | Outpatient (CLI) | payer MEDICARE, OTHER | END 2021-02-21 10:02 | disposition home or self-care (01) | LOC: BICMAMMO 10:01 | PROVIDERS: ATTEND Physician Assistant | DX: Z12.31 Encounter for screening mammogram for malignant neoplasm of breast (principal) | CPT/HCPCS: 77063; 77067 ==

== ENCOUNTER 2022-04-08 10:28 | Outpatient (CLI) | payer OTHER | END 2022-04-08 10:29 | disposition home or self-care (01) | LOC: TBSIIMAG 10:28 | PROVIDERS: ATTEND Family Medicine | DX: M47.26 Other spondylosis with radiculopathy, lumbar region (principal); M47.27 Other spondylosis with radiculopathy, lumbosacral region; M48.061 Spinal stenosis, lumbar region without neurogenic claudication | CPT/HCPCS: 72148 ==

== ENCOUNTER 2022-07-18 12:16 | Outpatient (CLI) | payer OTHER | END 2022-07-18 12:17 | disposition home or self-care (01) | LOC: BICMAMMO 12:16 | PROVIDERS: ATTEND Physician Assistant | DX: Z12.31 Encounter for screening mammogram for malignant neoplasm of breast (principal) | CPT/HCPCS: 77063; 77067 ==

== ENCOUNTER 2023-01-15 01:36 | Inpatient (IN) | payer OTHER, MEDICAID ==
[2023-01-15 04:23] VITALS: BMI 34.0
[2023-01-15] MEDS ORDERED: Morphine 2 MG/ML VIAL SLOW IVP PRN (04:32)
[2023-01-15] MEDS ORDERED: Ondansetron PF 4 MG/2 ML Vial IVP PRN ×2 (04:34→04:45)
[2023-01-15] MEDS ORDERED: Acetaminophen 325 MG TAB PO PRN (04:34)
[2023-01-15] MEDS ORDERED: Dextrose 5% in Water 1,000 ML IV PRN (04:38)
[2023-01-15] MEDS ORDERED: HumaLOG 300 UNITS/3 ML VIAL SC PRN ×2 (04:38)
[2023-01-15] MEDS ORDERED: Dextrose 50% Abboject 50 ML SYRINGE SLOW IVP PRN (04:38)
[2023-01-15] MEDS ORDERED: Glucagon 1 MG/ML KIT IM PRN (04:38)
[2023-01-15] MEDS ORDERED: Sodium Chloride 0.9% 1,000 ML IV SCH (04:45)
[2023-01-15] MEDS: Lactated Ringer's 1,000 ML IV SCH ×3 (05:10→20:02)
[2023-01-15] MEDS: Morphine 4 MG/ML VIAL SLOW IVP PRN ×5 (06:31→22:58)
[2023-01-15 06:57] LABS: #Monocytes 0.7 thou/uL (0.11-0.59); #Neutrophils 8.8 thou/uL (1.40-6.50); %Basophils 0.1 % (0.0-1.0); %Eosinophils 0.1 % (0.0-10.0); %Lymphocytes 5.3 % (21.0-51.0); %Monocytes 6.9 % (0.0-10.0); %Neutrophils 87.3 % (42.0-75.0); Hematocrit 34.6 % (36.0-47.0); Hemoglobin 11.2 g/dL (12.0-16.0); Mean Corpuscular HGB CONC 32.4 g/dL (32.0-36.0); Mean Corpuscular Hemoglobin 28.7 pg (27.0-31.0); Mean Corpuscular Volume 88.7 fl (78.0-98.0); Mean Platelet Volume 10.6 fL (7.4-10.4); Platelet Count 163 10x3/uL (130-400); RBC Distribution Width 13.5 % (11.5-14.5)
[2023-01-15 07:27] LABS: ALT (SGPT) 11 U/L (8-55); AST (SGOT) 18 U/L (5-34); Albumin 3.7 g/dL (3.4-4.8); Alkaline Phosphatase 76 U/L (40-110); Anion Gap 11 mmol/L (10-20); BUN (Urea Nitrogen) 15 mg/dL (9.8-20.1); Bilirubin, Total 0.5 mg/dL (0.2-1.2); Calc. Creatinine Clearance 88 mL/min (70-130); Calcium 8.3 mg/dL (7.8-10.44); Carbon Dioxide 24 mmol/L (23-31); Chloride 104 mmol/L (98-107); Estimated GFR 87; Globulin 1.8 g/dL (2.4-3.5); Glucose 170 mg/dL (83-110); Potassium 3.6 mmol/L (3.5-5.1); Protein, Total 5.5 g/dL (5.8-8.1); Sodium 135 mmol/L (136-145)
[2023-01-15 07:40] LABS: Lipase 2379 U/L (8-78)
[2023-01-15] MEDS ORDERED: Non-Formulary Item 1 EACH (Promethazine/Dextromethorphan [Promethazine-Dm 6.25-15 Mg/5ml] PO PRN (09:34)
[2023-01-15] MEDS ORDERED: PROMETHAZINE DM PO PRN (09:59)
[2023-01-15 10:55] LABS: Hemoglobin A1c 6.5 % (4.0-6.0)
[2023-01-15] MEDS ORDERED: traMADol HCl 50 MG TAB PO PRN (20:09)
[2023-01-15] MEDS: Ketorolac Tromethamine 30 MG/ML VIAL IVP PRN (20:43)
[2023-01-16] MEDS: Morphine 4 MG/ML VIAL SLOW IVP PRN ×3 (03:43→20:27)
[2023-01-16] MEDS: Lactated Ringer's 1,000 ML IV SCH ×4 (03:45→20:32)
[2023-01-16] MEDS: HYDROcodone/Acetaminophen 5/325 mg Tablet PO PRN ×4 (06:01→15:44)
[2023-01-16 06:47] LABS: #Monocytes 0.7 thou/uL (0.11-0.59); %Basophils 0.2 % (0.0-1.0); %Eosinophils 0.3 % (0.0-10.0); %Monocytes 6.7 % (0.0-10.0); %Neutrophils 85.1 % (42.0-75.0); Hematocrit 31.4 % (36.0-47.0); Hemoglobin 10.1 g/dL (12.0-16.0); Mean Corpuscular HGB CONC 32.2 g/dL (32.0-36.0); Mean Corpuscular Hemoglobin 28.7 pg (27.0-31.0); Mean Corpuscular Volume 89.2 fl (78.0-98.0); Mean Platelet Volume 10.8 fL (7.4-10.4); Platelet Count 141 10x3/uL (130-400); RBC Distribution Width 13.5 % (11.5-14.5); Red Blood Cell (RBC) Count 3.52 mill/uL (4.20-5.40); White Blood Cell (WBC) Count 10.5 10x3/uL (4.8-10.8)
[2023-01-16 07:13] LABS: ALT (SGPT) 10 U/L (8-55); AST (SGOT) 17 U/L (5-34); Albumin 3.5 g/dL (3.4-4.8); Alkaline Phosphatase 70 U/L (40-110); Anion Gap 9 mmol/L (10-20); BUN (Urea Nitrogen) 10 mg/dL (9.8-20.1); Bilirubin, Total 0.5 mg/dL (0.2-1.2); Calc. Creatinine Clearance 99 mL/min (70-130); Calcium 8.3 mg/dL (7.8-10.44); Carbon Dioxide 28 mmol/L (23-31); Chloride 102 mmol/L (98-107); Estimated GFR 93; Globulin 1.9 g/dL (2.4-3.5); Glucose 134 mg/dL (83-110); Potassium 3.2 mmol/L (3.5-5.1); Protein, Total 5.4 g/dL (5.8-8.1); Sodium 136 mmol/L (136-145)
[2023-01-16] MEDS: FLUoxetine HCl 20 MG CAP PO SCH (07:56)
[2023-01-16] MEDS: Polyethylene Glycol 3350 17 GM Packet PO SCH ×2 (07:57→20:31)
[2023-01-16] MEDS ORDERED: Non-Formulary Item 1 EACH (Fluoxetine Hcl [Fluoxetine Hcl] 40 MG Capsule) PO SCH (09:00)
[2023-01-16] MEDS ORDERED: Potassium Chloride 20 MEQ TAB PO SCH (11:15)
[2023-01-16] MEDS ORDERED: Magnesium Oxide 400 MG TAB PO SCH (11:15)
[2023-01-16] MEDS: Ketorolac Tromethamine 30 MG/ML VIAL IVP PRN ×2 (12:10→18:00)
[2023-01-16] MEDS: HYDROcodone/Acetaminophen 10/325 mg Tablet PO PRN (22:01)
[2023-01-17] MEDS: Morphine 4 MG/ML VIAL SLOW IVP PRN ×2 (01:43→12:30)
[2023-01-17] MEDS: Ketorolac Tromethamine 30 MG/ML VIAL IVP PRN ×2 (01:44→08:58)
[2023-01-17] MEDS: Lactated Ringer's 1,000 ML IV SCH ×3 (03:20→20:05)
[2023-01-17 05:46] LABS: #Eosinphils 0.1 thou/uL (0.0-0.7); #Monocytes 0.7 thou/uL (0.11-0.59); %Basophils 0.2 % (0.0-1.0); %Eosinophils 1.4 % (0.0-10.0); %Lymphocytes 7.2 % (21.0-51.0); %Monocytes 7.3 % (0.0-10.0); %Neutrophils 83.4 % (42.0-75.0); Hemoglobin 9.3 g/dL (12.0-16.0); Mean Corpuscular HGB CONC 32.1 g/dL (32.0-36.0); Mean Corpuscular Hemoglobin 28.4 pg (27.0-31.0); Mean Corpuscular Volume 88.7 fl (78.0-98.0); Mean Platelet Volume 11.4 fL (7.4-10.4); Platelet Count 120 10x3/uL (130-400); RBC Distribution Width 13.4 % (11.5-14.5); Red Blood Cell (RBC) Count 3.27 mill/uL (4.20-5.40); White Blood Cell (WBC) Count 9.5 10x3/uL (4.8-10.8)
[2023-01-17] MEDS: HYDROcodone/Acetaminophen 10/325 mg Tablet PO PRN ×4 (06:10→20:04)
[2023-01-17 06:26] LABS: ALT (SGPT) 10 U/L (8-55); AST (SGOT) 19 U/L (5-34); Albumin 3.3 g/dL (3.4-4.8); Alkaline Phosphatase 67 U/L (40-110); Anion Gap 11 mmol/L (10-20); BUN (Urea Nitrogen) 9 mg/dL (9.8-20.1); Bilirubin, Total 0.4 mg/dL (0.2-1.2); Calc. Creatinine Clearance 111 mL/min (70-130); Calcium 8.2 mg/dL (7.8-10.44); Carbon Dioxide 26 mmol/L (23-31); Chloride 99 mmol/L (98-107); Estimated GFR 95; Globulin 1.8 g/dL (2.4-3.5); Glucose 116 mg/dL (83-110); Potassium 3.4 mmol/L (3.5-5.1); Protein, Total 5.1 g/dL (5.8-8.1); Sodium 133 mmol/L (136-145)
[2023-01-17] MEDS: Polyethylene Glycol 3350 17 GM Packet PO SCH ×2 (08:23→20:05)
[2023-01-17] MEDS: FLUoxetine HCl 20 MG CAP PO SCH (08:23)
[2023-01-17] MEDS ORDERED: hydrALAZINE 20 MG/ML VIAL SLOW IVP PRN (09:14)
[2023-01-17] MEDS ORDERED: Magnesium Oxide 400 MG TAB PO SCH (09:30)
[2023-01-17] MEDS ORDERED: Losartan 25 MG TAB PO SCH (09:30)
[2023-01-17] MEDS ORDERED: Bisacodyl 5 MG TAB PO SCH (16:15)
[2023-01-17] MEDS: Potassium Chloride 20 MEQ TAB PO SCH (16:52)
[2023-01-17 18:20] LABS: Magnesium 1.5 mg/dL (1.6-2.6)
[2023-01-18] MEDS: HYDROcodone/Acetaminophen 10/325 mg Tablet PO PRN ×2 (00:48→05:31)
[2023-01-18] MEDS: Lactated Ringer's 1,000 ML IV SCH (05:50)
[2023-01-18 06:26] LABS: #Eosinphils 0.2 thou/uL (0.0-0.7); #Monocytes 0.6 thou/uL (0.11-0.59); %Basophils 0.3 % (0.0-1.0); %Eosinophils 2.5 % (0.0-10.0); %Lymphocytes 9.8 % (21.0-51.0); %Monocytes 8.2 % (0.0-10.0); %Neutrophils 78.7 % (42.0-75.0); Hematocrit 30.5 % (36.0-47.0); Hemoglobin 9.8 g/dL (12.0-16.0); Mean Corpuscular HGB CONC 32.1 g/dL (32.0-36.0); Mean Corpuscular Hemoglobin 28.6 pg (27.0-31.0); Mean Corpuscular Volume 88.9 fl (78.0-98.0); Mean Platelet Volume 11.4 fL (7.4-10.4); Platelet Count 157 10x3/uL (130-400); RBC Distribution Width 13.3 % (11.5-14.5); Red Blood Cell (RBC) Count 3.43 mill/uL (4.20-5.40); White Blood Cell (WBC) Count 7.6 10x3/uL (4.8-10.8)
[2023-01-18] MEDS: Ketorolac Tromethamine 30 MG/ML VIAL IVP PRN (06:41)
[2023-01-18 06:58] LABS: ALT (SGPT) 14 U/L (8-55); AST (SGOT) 22 U/L (5-34); Albumin 3.5 g/dL (3.4-4.8); Alkaline Phosphatase 78 U/L (40-110); Anion Gap 14 mmol/L (10-20); BUN (Urea Nitrogen) 5 mg/dL (9.8-20.1); Bilirubin, Total 0.5 mg/dL (0.2-1.2); Calc. Creatinine Clearance 104 mL/min (70-130); Calcium 8.2 mg/dL (7.8-10.44); Carbon Dioxide 29 mmol/L (23-31); Chloride 96 mmol/L (98-107); Estimated GFR 94; Globulin 2.3 g/dL (2.4-3.5); Glucose 135 mg/dL (83-110); Potassium 3.3 mmol/L (3.5-5.1); Protein, Total 5.8 g/dL (5.8-8.1); Sodium 136 mmol/L (136-145)
[2023-01-18] MEDS: Polyethylene Glycol 3350 17 GM Packet PO SCH (08:54)
[2023-01-18] MEDS: Potassium Chloride 20 MEQ TAB PO SCH (08:54)
[2023-01-18] MEDS: FLUoxetine HCl 20 MG CAP PO SCH (08:54)
[2023-01-18] MEDS ORDERED: Losartan 25 MG TAB PO SCH ×2 (09:00→10:00)
[2023-01-18] MEDS ORDERED: Magnesium Oxide 400 MG TAB PO SCH (09:00)
[2023-01-18] MEDS ORDERED: Amlodipine 5 MG TAB PO SCH (09:00)
[2023-01-18] MEDS ORDERED: Potassium Chloride 20 MEQ TAB PO SCH (10:00)
[2023-01-18] MEDS ORDERED: Magnesium 2 GM/50 ML(in water) 2 GM in Premix 1 BAG IVPB SCH (10:00)
[2023-01-18 12:44] VITALS: BP 165/76; TEMP 98
[2023-01-19] MEDS ORDERED: Losartan 25 MG TAB PO SCH (09:00)
== END 2023-01-18 16:07 | disposition home or self-care (01) | DRG 440 ==
LOC: T4-B 04:15
PROVIDERS: ADMIT Internal Medicine; ATTEND Internal Medicine
DX: K85.90 Acute pancreatitis without necrosis or infection, unspecified (principal); I11.0 Hypertensive heart disease with heart failure; I50.9 Heart failure, unspecified; I25.10 Atherosclerotic heart disease of native coronary artery without angina pectoris; E11.9 Type 2 diabetes mellitus without complications; Z88.0 Allergy status to penicillin; Z88.1 Allergy status to other antibiotic agents; Z79.899 Other long term (current) drug therapy; Z79.82 Long term (current) use of aspirin; Z79.4 Long term (current) use of insulin; K21.9 Gastro-esophageal reflux disease without esophagitis; G89.29 Other chronic pain; M54.9 Dorsalgia, unspecified; Z90.710 Acquired absence of both cervix and uterus; Z98.890 Other specified postprocedural states; Z82.49 Family history of ischemic heart disease and other diseases of the circulatory system; E87.6 Hypokalemia
CPT/HCPCS: 36415; 36416; 74018; 76705; 80053; 83036; 83690; 83735; 85025; J0360; J1650; J1885; J2270; J3475; J7120

== ENCOUNTER 2023-03-27 14:23 | Outpatient (CLI) | payer OTHER, MEDICAID ==
[2023-03-27 16:06] LABS: #Eosinphils 0.2 10x3/uL (0.0-0.5); #Monocytes 0.4 10x3/uL (0.0-1.1); #Neutrophils 3.4 10x3/uL (1.5-8.4); %Basophils 0.8 % (0.0-2.0); %Eosinophils 2.9 % (0.0-6.0); %Lymphocytes 23.5 % (18.0-47.0); %Monocytes 6.9 % (0.0-10.0); %Neutrophils 65.7 % (40.0-75.0); Hematocrit 36.2 % (34.9-44.5); Hemoglobin 11.6 g/dL (12.0-15.5); Mean Corpuscular Hemoglobin 28.4 pg (27.0-33.0); Mean Corpuscular Volume 88.7 fl (81.6-98.3); Mean Platelet Volume 11.1 fl (7.4-10.4); Platelet Count 193 10x3/uL (150-450); RBC Distribution Width 14.5 % (11.5-14.5); Red Blood Cell (RBC) Count 4.08 10x6/uL (3.90-5.03); White Blood Cell (WBC) Count 5.2 10x3/uL (3.5-10.5)
[2023-03-27 17:30] LABS: ALT (SGPT) 16 U/L (8-55); AST (SGOT) 23 U/L (5-34); Albumin 3.9 g/dL (3.4-4.8); Alkaline Phosphatase 100 U/L (40-110); Anion Gap 16 mmol/L (10-20); BUN (Urea Nitrogen) 35 mg/dL (9.8-20.1); Bilirubin, Direct 0.1 mg/dL (0.1-0.3); Bilirubin, Total 0.3 mg/dL (0.2-1.2); Calc. Creatinine Clearance 0 mL/min (70-130); Carbon Dioxide 19 mmol/L (23-31); Chloride 111 mmol/L (98-107); Estimated GFR 57; Globulin 2.3 g/dL (2.4-3.5); Glucose 188 mg/dL (83-110); Protein, Total 6.2 g/dL (5.8-8.1); Sodium 142 mmol/L (136-145)
== END 2023-03-27 14:24 | disposition home or self-care (01) ==
LOC: LABBT 14:23
PROVIDERS: ATTEND Surgery
DX: Z01.818 Encounter for other preprocedural examination (principal); K85.10 Biliary acute pancreatitis without necrosis or infection
CPT/HCPCS: 80053; 80076; 85025; 93005; 93010

== ENCOUNTER 2023-04-03 10:35 | Day surgery (SDC) | payer MEDICARE, MEDICAID ==
[2023-03-27 15:05] VITALS: BMI 33.8
[2023-04-03] MEDS ORDERED: PROPOFOL 20 ML ONE (11:25)
[2023-04-03] MEDS ORDERED: Bupivacaine 0.25% HCL 30 ML VIAL ONE (12:11)
[2023-04-03] MEDS ORDERED: Iopamidol 30 ML ONE (12:11)
[2023-04-03] MEDS ORDERED: EPINEPHrine 1 MG/ML VIAL ONE (12:11)
[2023-04-03] MEDS ORDERED: LevoFLOXacin D5W 500 mg (100 mL) BAG ONE (13:08)
[2023-04-03] MEDS ORDERED: fentaNYL PF 100 MCG/2 ML SYRINGE ONE (13:14)
[2023-04-03] MEDS ORDERED: Lidocaine 1% PF 5 ML VIAL ONE (13:20)
[2023-04-03] MEDS ORDERED: Rocuronium Bromide 10 MG/ML (10ML VIAL) ONE (13:20)
[2023-04-03] MEDS ORDERED: Dexamethasone 4 mg/ml Vial ONE (13:28)
[2023-04-03] MEDS ORDERED: Ondansetron PF 4 MG/2 ML Vial ONE (13:28)
[2023-04-03] MEDS ORDERED: Labetalol HCl 100 MG/20 ML VIAL ONE (13:43)
[2023-04-03] MEDS ORDERED: SUGAMMADEX SODIUM 200 MG/2 ML VIAL ONE (13:54)
[2023-04-03] MEDS ORDERED: Glycopyrrolate 0.2 MG/ML 5 ML SYRINGE ONE (13:55)
[2023-04-03] MEDS ORDERED: fentaNYL 50 mcg/mL 1 mL Vial ONE ×3 (14:15→15:24)
[2023-04-03] MEDS ORDERED: Meperidine HCl/PF 25 MG (1 mL) VIAL ONE (14:20)
[2023-04-03] MEDS ORDERED: HYDROmorphone 0.5 MG/0.5 ML SYRINGE ONE ×2 (14:48→14:58)
[2023-04-03] MEDS ORDERED: HYDROcodone/Acetaminophen 5/325 mg Tablet ONE (17:03)
== END 2023-04-03 17:26 | disposition home or self-care (01) ==
LOC: SDC 10:35
PROVIDERS: ATTEND Surgery
PROC: 0FT44ZZ Resection of Gallbladder, Percutaneous Endoscopic Approach (ICD-10-PCS; principal; 2023-04-03)
PROC: BF532Z0 Other Imaging of Gallbladder and Bile Ducts using Fluorescing Agent, Intraoperative (ICD-10-PCS; 2023-04-03)
DX: K80.10 Calculus of gallbladder with chronic cholecystitis without obstruction (principal); K85.10 Biliary acute pancreatitis without necrosis or infection; I10 Essential (primary) hypertension; E78.5 Hyperlipidemia, unspecified; F32.A Depression, unspecified; F41.9 Anxiety disorder, unspecified; E11.9 Type 2 diabetes mellitus without complications; Z90.710 Acquired absence of both cervix and uterus; Z98.890 Other specified postprocedural states; Z79.84 Long term (current) use of oral hypoglycemic drugs; Z79.82 Long term (current) use of aspirin; Z79.899 Other long term (current) drug therapy; Z88.1 Allergy status to other antibiotic agents
CPT/HCPCS: 47532; 47563; C1889; J0171; J3010; 88304; J1100; J1170; J1956; J2175; J2405; J2704; Q9967; S0020

== ENCOUNTER 2023-08-14 14:06 | Outpatient (CLI) | payer OTHER | END 2023-08-14 14:07 | disposition home or self-care (01) | LOC: BICMAMMO 14:06 | PROVIDERS: ATTEND Physician Assistant | DX: Z12.31 Encounter for screening mammogram for malignant neoplasm of breast (principal) | CPT/HCPCS: 77063; 77067 ==

== ENCOUNTER 2023-08-29 14:03 | Observation (INO) | payer OTHER ==
[2023-08-29 15:16] LABS: #Basophils 0.04 10x3/uL (0.0-0.2); %Basophils 0.9 % (0.0-1.0); %Lymphocytes 21.2 % (21.0-51.0); %Monocytes 7.5 % (0.0-10.0); Hematocrit 31.9 % (36.0-47.0); Hemoglobin 10.5 g/dL (12.0-16.0); Mean Corpuscular HGB CONC 32.9 g/dL (32.0-36.0); Mean Corpuscular Hemoglobin 29.5 pg (27.0-31.0); Mean Corpuscular Volume 89.6 fL (78.0-98.0); Mean Platelet Volume 10.6 fL (7.4-10.4); Platelet Count 188 10x3/uL (130-400); RBC Distribution Width 13.4 % (11.5-14.5); Red Blood Cell (RBC) Count 3.56 mill/uL (4.20-5.40)
[2023-08-29 15:30] LABS: ALT (SGPT) 10 U/L (8-55); AST (SGOT) 21 U/L (5-34); Albumin 3.8 g/dL (3.4-4.8); Alkaline Phosphatase 98 U/L (40-110); Anion Gap 15 mmol/L (10-20); BUN (Urea Nitrogen) 35 mg/dL (9.8-20.1); Bilirubin, Total 0.3 mg/dL (0.2-1.2); Calc. Creatinine Clearance 0 mL/min (70-130); Calcium 8.5 mg/dL (7.8-10.44); Carbon Dioxide 20 mmol/L (23-31); Chloride 96 mmol/L (98-107); Estimated GFR 29; Globulin 2.7 g/dL (2.4-3.5); Glucose 147 mg/dL (83-110); Potassium 4.2 mmol/L (3.5-5.1); Protein, Total 6.5 g/dL (5.8-8.1); Sodium 127 mmol/L (136-145)
[2023-08-29 15:34] LABS: Troponin I Less than 0.010 ng/mL (< 0.028)
[2023-08-29] MEDS ORDERED: Ondansetron ODT 4 MG TAB PO PRN (17:10)
[2023-08-29 18:09] LABS: Bacteria/HPF None Seen HPF (None Seen); Bilirubin Negative (Negative); Blood, Urine Negative (Negative); CAUTI Indications for Culture Dysuria,urgency,freq; Clarity Clear (Clear); Glucose, Urine (Dipstick) Normal (Negative); Ketone, Urine Negative (Negative); Leukocyte Negative Leu/uL (Negative); Nitrite Negative (Negative); Protein, Urine (Dipstick) Negative (Neg-Trace); RBC/HPF None Seen HPF (0-3); Squamous Epithelial 0-3 HPF (0-3); Urobilinogen Normal mg/dL (Less than 2); WBC/HPF 0-3 HPF (0-3); pH, Urine 5.5 (5.0-9.0)
[2023-08-29 18:11] LABS: Urine Culture Reflex No No
[2023-08-29 18:43] VITALS: BMI 34.7
[2023-08-29] MEDS: Sodium Chloride 0.9% 1,000 ML IV SCH (19:12)
[2023-08-29] MEDS ORDERED: Dextrose 5% in Water 1,000 ML IV PRN (21:02)
[2023-08-29] MEDS ORDERED: Glucagon 1 MG/ML KIT IM PRN (21:02)
[2023-08-29] MEDS ORDERED: Dextrose 50% Abboject 50 ML SYRINGE SLOW IVP PRN (21:02)
[2023-08-29 21:20] LABS: Potassium, Urine 14.4 mmol/L
[2023-08-29] MEDS: Mirtazapine 15 MG TAB PO SCH (21:50)
[2023-08-29] MEDS: Heparin 5,000 UNITS/ML VIAL SC SCH (21:50)
[2023-08-30] MEDS: HYDROcodone/Acetaminophen 10/325 mg Tablet PO PRN (02:33)
[2023-08-30 05:12] LABS: #Basophils Less than 0.03 10x3/uL (0.0-0.2); %Basophils 0.5 % (0.0-1.0); %Eosinophils 2.9 % (0.0-10.0); %Lymphocytes 23.7 % (21.0-51.0); %Monocytes 8.4 % (0.0-10.0); Hematocrit 28.3 % (36.0-47.0); Hemoglobin 9.3 g/dL (12.0-16.0); Mean Corpuscular HGB CONC 32.9 g/dL (32.0-36.0); Mean Corpuscular Hemoglobin 29.1 pg (27.0-31.0); Mean Corpuscular Volume 88.4 fL (78.0-98.0); Mean Platelet Volume 10.4 fL (7.4-10.4); Platelet Count 161 10x3/uL (130-400); RBC Distribution Width 13.6 % (11.5-14.5)
[2023-08-30 05:34] LABS: Anion Gap 10 mmol/L (10-20); BUN (Urea Nitrogen) 24 mg/dL (9.8-20.1); Calc. Creatinine Clearance 63 mL/min (70-130); Calcium 8.3 mg/dL (7.8-10.44); Carbon Dioxide 23 mmol/L (23-31); Chloride 106 mmol/L (98-107); Estimated GFR 57; Glucose 109 mg/dL (83-110); Sodium 135 mmol/L (136-145)
[2023-08-30 08:10] VITALS: BMI 34.7
[2023-08-30] MEDS ORDERED: Linaclotide [Linzess] 290 MCG Capsule PO SCH (09:00)
[2023-08-30] MEDS: Aspirin 81 mg Enteric Coated Tablet PO SCH (09:48)
[2023-08-30] MEDS: HumaLOG 300 UNITS/3 ML VIAL SC PRN (11:29)
[2023-08-31] MEDS: Acetaminophen 325 MG TAB PO PRN (00:49)
[2023-08-31 10:30] LABS: #Basophils 0.03 10x3/uL (0.0-0.2); %Basophils 0.8 % (0.0-1.0); %Monocytes 7.4 % (0.0-10.0); %Neutrophils 66.5 % (42.0-75.0); Hematocrit 30.4 % (36.0-47.0); Hemoglobin 9.9 g/dL (12.0-16.0); Mean Corpuscular HGB CONC 32.6 g/dL (32.0-36.0); Mean Corpuscular Hemoglobin 28.9 pg (27.0-31.0); Mean Corpuscular Volume 88.9 fL (78.0-98.0); Mean Platelet Volume 10.6 fL (7.4-10.4); Platelet Count 175 10x3/uL (130-400); RBC Distribution Width 13.8 % (11.5-14.5); Red Blood Cell (RBC) Count 3.42 mill/uL (4.20-5.40)
[2023-08-31 10:50] LABS: Anion Gap 13 mmol/L (10-20); BUN (Urea Nitrogen) 10 mg/dL (9.8-20.1); Calc. Creatinine Clearance 84 mL/min (70-130); Calcium 8.5 mg/dL (7.8-10.44); Carbon Dioxide 22 mmol/L (23-31); Chloride 107 mmol/L (98-107); Estimated GFR 81; Glucose 140 mg/dL (83-110); Potassium 3.6 mmol/L (3.5-5.1); Sodium 138 mmol/L (136-145)
[2023-08-31 12:36] VITALS: BP 151/69; TEMP 98.1
[2023-09-01] MEDS ORDERED: Lisinopril 10 MG TAB PO SCH (09:00)
== END 2023-08-31 15:13 | disposition home or self-care (01) ==
LOC: ERS 14:03 → 2NO 16:41
PROVIDERS: ADMIT Internal Medicine; ATTEND Family Medicine
DX: R42 Dizziness and giddiness (principal); E87.1 Hypo-osmolality and hyponatremia; N17.9 Acute kidney failure, unspecified; E11.9 Type 2 diabetes mellitus without complications; E78.5 Hyperlipidemia, unspecified; R53.1 Weakness; R00.1 Bradycardia, unspecified; Z88.0 Allergy status to penicillin; Z79.82 Long term (current) use of aspirin; Z79.84 Long term (current) use of oral hypoglycemic drugs; Z79.899 Other long term (current) drug therapy
CPT/HCPCS: 70450; 73502; 80048 ×2; 80053; 81001; 82436; 82962 ×3; 83880; 84133; 84300; 84484; 85025 ×3; 93005; 96372 ×3; 99285; G0378 ×4; J1644 ×3; J7050 ×2; 36415; 36416; J1815

== ENCOUNTER 2023-10-09 14:53 | Inpatient (IN) | payer OTHER, MEDICAID ==
[2023-10-09 16:32] LABS: #Basophils 0.03 10x3/uL (0.0-0.2); %Basophils 0.6 % (0.0-1.0); %Eosinophils 2.6 % (0.0-10.0); %Lymphocytes 30.4 % (21.0-51.0); %Monocytes 7.6 % (0.0-10.0); %Neutrophils 58.2 % (42.0-75.0); Hematocrit 31.4 % (36.0-47.0); Hemoglobin 10.4 g/dL (12.0-16.0); Mean Corpuscular HGB CONC 33.1 g/dL (32.0-36.0); Mean Corpuscular Hemoglobin 29.6 pg (27.0-31.0); Mean Corpuscular Volume 89.5 fL (78.0-98.0); Mean Platelet Volume 9.8 fL (7.4-10.4); Platelet Count 173 10x3/uL (130-400); RBC Distribution Width 13.2 % (11.5-14.5); Red Blood Cell (RBC) Count 3.51 mill/uL (4.20-5.40)
[2023-10-09] MEDS ORDERED: Aspirin Chewable 81 MG TAB ONE (16:42)
[2023-10-09 16:49] LABS: ALT (SGPT) 12 U/L (8-55); AST (SGOT) 17 U/L (5-34); Albumin 3.5 g/dL (3.4-4.8); Alkaline Phosphatase 88 U/L (40-110); Anion Gap 12 mmol/L (10-20); BUN (Urea Nitrogen) 28 mg/dL (9.8-20.1); Bilirubin, Total 0.3 mg/dL (0.2-1.2); Calc. Creatinine Clearance 0 mL/min (70-130); Calcium 8.6 mg/dL (7.8-10.44); Carbon Dioxide 25 mmol/L (23-31); Chloride 94 mmol/L (98-107); Estimated GFR 42; Globulin 2.2 g/dL (2.4-3.5); Glucose 127 mg/dL (83-110); Magnesium 1.5 mg/dL (1.6-2.6); Potassium 4.5 mmol/L (3.5-5.1); Protein, Total 5.7 g/dL (5.8-8.1); Sodium 126 mmol/L (136-145)
[2023-10-09 16:52] LABS: Troponin I Less than 0.010 ng/mL (< 0.028)
[2023-10-09] MEDS ORDERED: Senokot S 8.6-50 MG TAB PO PRN (17:35)
[2023-10-09] MEDS ORDERED: Ondansetron PF 4 MG/2 ML Vial IVP PRN (17:35)
[2023-10-09] MEDS ORDERED: Ondansetron ODT 4 MG TAB PO PRN (17:35)
[2023-10-09] MEDS ORDERED: Acetaminophen 650 MG Suppository PR PRN (17:35)
[2023-10-09] MEDS ORDERED: Electrolyte Replacement Protocol 1 EACH FS SCH (18:15)
[2023-10-09] MEDS ORDERED: Electrolyte Replacement Protocol FS PRN (18:15)
[2023-10-09] MEDS ORDERED: Meclizine HCl 12.5 MG TAB PO PRN (19:21)
[2023-10-09 20:43] VITALS: BMI 34.0
[2023-10-09] MEDS: Atorvastatin Calcium 40 MG TAB PO SCH (21:05)
[2023-10-09] MEDS: Magnesium Sulfate In Water 4 GM in Premix 1 BAG IVPB SCH (21:05)
[2023-10-09] MEDS: Acetaminophen 325 MG TAB PO PRN (21:23)
[2023-10-09 21:35] LABS: Hemoglobin A1c 6.3 % (4.0-6.0)
[2023-10-09 21:40] LABS: Troponin I Less than 0.010 ng/mL (< 0.028)
[2023-10-10] MEDS: Sodium Chloride 0.9% 500 ML IV SCH (05:31)
[2023-10-10 06:36] LABS: Anion Gap 10 mmol/L (10-20); BUN (Urea Nitrogen) 24 mg/dL (9.8-20.1); Calc. Creatinine Clearance 66 mL/min (70-130); Calcium 8.4 mg/dL (7.8-10.44); Carbon Dioxide 22 mmol/L (23-31); Cardiac Risk 2.6 (Less than 4.5); Chloride 98 mmol/L (98-107); Cholesterol 123 mg/dl (< 200 Desired); Estimated GFR 61; Glucose 109 mg/dL (83-110); HDL Cholesterol 47 mg/dL (>60 Neg Risk); LDL Cholesterol, Calculated 56 mg/dL; Magnesium 2.5 mg/dL (1.6-2.6); Potassium 4.1 mmol/L (3.5-5.1); Sodium 126 mmol/L (136-145); Triglycerides 102 mg/dL (Less than 150)
[2023-10-10 07:00] LABS: #Basophils Less than 0.03 10x3/uL (0.0-0.2); %Basophils 0.4 % (0.0-1.0); %Eosinophils 2.8 % (0.0-10.0); %Lymphocytes 18.6 % (21.0-51.0); %Monocytes 8.3 % (0.0-10.0); %Neutrophils 69.5 % (42.0-75.0); Hematocrit 32.2 % (36.0-47.0); Hemoglobin 10.6 g/dL (12.0-16.0); Mean Corpuscular HGB CONC 32.9 g/dL (32.0-36.0); Mean Corpuscular Volume 88.2 fL (78.0-98.0); Mean Platelet Volume 9.9 fL (7.4-10.4); Platelet Count 158 10x3/uL (130-400); RBC Distribution Width 13.1 % (11.5-14.5); Red Blood Cell (RBC) Count 3.65 mill/uL (4.20-5.40)
[2023-10-10 08:43] LABS: Bacteria/HPF None Seen HPF (None Seen); Bilirubin Negative (Negative); Blood, Urine Negative (Negative); Calcium Oxalate Crystals Rare HPF (None Seen); Clarity Clear (Clear); Glucose, Urine (Dipstick) Normal (Negative); Ketone, Urine Negative (Negative); Leukocyte Negative Leu/uL (Negative); Nitrite Negative (Negative); Protein, Urine (Dipstick) Negative (Neg-Trace); RBC/HPF 0-3 HPF (0-3); Specific Gravity, Urine 1.007 (1.002-1.036); Squamous Epithelial 0-3 HPF (0-3); Urobilinogen Normal mg/dL (Less than 2); WBC/HPF 0-3 HPF (0-3)
[2023-10-10 11:13] LABS: Troponin I 0.013 ng/mL (< 0.028)
[2023-10-10] MEDS ORDERED: HYDROcodone/Acetaminophen 5/325 mg Tablet PO PRN (13:15)
[2023-10-10] MEDS: HYDROcodone/Acetaminophen 5/325 mg Tablet PO PRN (14:01)
[2023-10-10 16:40] LABS: Anion Gap 9 mmol/L (10-20); BUN (Urea Nitrogen) 17 mg/dL (9.8-20.1); Calc. Creatinine Clearance 74 mL/min (70-130); Calcium 8.3 mg/dL (7.8-10.44); Carbon Dioxide 22 mmol/L (23-31); Chloride 99 mmol/L (98-107); Estimated GFR 71; Glucose 117 mg/dL (83-110); Potassium 4.4 mmol/L (3.5-5.1); Sodium 126 mmol/L (136-145)
[2023-10-10] MEDS: Sodium Chloride 0.9% 1,000 ML IV SCH (18:33)
[2023-10-10 19:37] LABS: Potassium 4.2 mmol/L (3.5-5.1); Sodium 127 mmol/L (136-145)
[2023-10-11 04:56] LABS: #Basophils Less than 0.03 10x3/uL (0.0-0.2); %Basophils 0.5 % (0.0-1.0); %Lymphocytes 24.5 % (21.0-51.0); %Monocytes 9.8 % (0.0-10.0); %Neutrophils 60.9 % (42.0-75.0); Hematocrit 30.1 % (36.0-47.0); Hemoglobin 9.8 g/dL (12.0-16.0); Mean Corpuscular HGB CONC 32.6 g/dL (32.0-36.0); Mean Corpuscular Hemoglobin 28.5 pg (27.0-31.0); Mean Corpuscular Volume 87.5 fL (78.0-98.0); Mean Platelet Volume 10.1 fL (7.4-10.4); Platelet Count 152 10x3/uL (130-400); RBC Distribution Width 12.9 % (11.5-14.5); Red Blood Cell (RBC) Count 3.44 mill/uL (4.20-5.40)
[2023-10-11 05:19] LABS: Anion Gap 10 mmol/L (10-20); BUN (Urea Nitrogen) 14 mg/dL (9.8-20.1); Calc. Creatinine Clearance 81 mL/min (70-130); Calcium 8.2 mg/dL (7.8-10.44); Carbon Dioxide 21 mmol/L (23-31); Chloride 100 mmol/L (98-107); Estimated GFR 78; Glucose 101 mg/dL (83-110); Potassium 4.2 mmol/L (3.5-5.1); Sodium 127 mmol/L (136-145)
[2023-10-11 09:30] VITALS: BMI 34.0
[2023-10-11] MEDS: Sodium Chloride 1 GM TAB PO SCH (09:35)
[2023-10-11 18:57] LABS: Potassium 3.8 mmol/L (3.5-5.1); Sodium 130 mmol/L (136-145)
[2023-10-12 04:16] LABS: #Basophils Less than 0.03 10x3/uL (0.0-0.2); %Basophils 0.4 % (0.0-1.0); %Eosinophils 3.2 % (0.0-10.0); %Lymphocytes 17.7 % (21.0-51.0); %Monocytes 7.2 % (0.0-10.0); %Neutrophils 71.3 % (42.0-75.0); Hematocrit 33.5 % (36.0-47.0); Hemoglobin 10.9 g/dL (12.0-16.0); Mean Corpuscular HGB CONC 32.5 g/dL (32.0-36.0); Mean Corpuscular Hemoglobin 29.4 pg (27.0-31.0); Mean Corpuscular Volume 90.3 fL (78.0-98.0); Mean Platelet Volume 9.9 fL (7.4-10.4); Platelet Count 162 10x3/uL (130-400); Red Blood Cell (RBC) Count 3.71 mill/uL (4.20-5.40)
[2023-10-12 04:31] LABS: Anion Gap 10 mmol/L (10-20); BUN (Urea Nitrogen) 9 mg/dL (9.8-20.1); Calc. Creatinine Clearance 82 mL/min (70-130); Calcium 8.8 mg/dL (7.8-10.44); Carbon Dioxide 21 mmol/L (23-31); Chloride 106 mmol/L (98-107); Estimated GFR 80; Glucose 96 mg/dL (83-110); Potassium 3.7 mmol/L (3.5-5.1); Sodium 133 mmol/L (136-145)
[2023-10-12] MEDS ORDERED: hydrALAZINE 25 MG TAB PO PRN (10:39)
[2023-10-12 11:24] LABS: Magnesium 1.8 mg/dL (1.6-2.6)
[2023-10-12] MEDS: Amlodipine 5 MG TAB PO SCH ×2 (13:57→20:31)
[2023-10-12] MEDS: Magnesium 2 GM/50 ML(in water) 2 GM in Premix 1 BAG IVPB SCH (13:58)
[2023-10-12] MEDS: Aspirin 81 mg Enteric Coated Tablet PO SCH ×2 (14:02→14:04)
[2023-10-12] MEDS: Mirtazapine 15 MG TAB PO SCH (20:32)
[2023-10-12] MEDS: Pregabalin 75 MG CAP PO SCH (20:33)
[2023-10-12] MEDS: Heparin 5,000 UNITS/ML VIAL SC SCH (20:34)
[2023-10-13 05:06] LABS: #Basophils Less than 0.03 10x3/uL (0.0-0.2); %Basophils 0.4 % (0.0-1.0); %Eosinophils 3.1 % (0.0-10.0); %Lymphocytes 12.8 % (21.0-51.0); %Monocytes 9.4 % (0.0-10.0); %Neutrophils 73.9 % (42.0-75.0); Hematocrit 31.5 % (36.0-47.0); Hemoglobin 10.4 g/dL (12.0-16.0); Mean Corpuscular Hemoglobin 29.1 pg (27.0-31.0); Mean Platelet Volume 10.2 fL (7.4-10.4); Platelet Count 150 10x3/uL (130-400); RBC Distribution Width 13.1 % (11.5-14.5); Red Blood Cell (RBC) Count 3.58 mill/uL (4.20-5.40)
[2023-10-13 05:31] LABS: Anion Gap 9 mmol/L (10-20); BUN (Urea Nitrogen) 6 mg/dL (9.8-20.1); Calc. Creatinine Clearance 88 mL/min (70-130); Calcium 8.6 mg/dL (7.8-10.44); Carbon Dioxide 22 mmol/L (23-31); Chloride 110 mmol/L (98-107); Estimated GFR 88; Glucose 97 mg/dL (83-110); Magnesium 1.7 mg/dL (1.6-2.6); Potassium 3.3 mmol/L (3.5-5.1); Sodium 138 mmol/L (136-145)
[2023-10-13] MEDS ORDERED: Magnesium 2 GM/50 ML(in water) 2 GM in Premix 1 BAG IVPB SCH (08:00)
[2023-10-13] MEDS: Potassium Chloride 20 MEQ TAB PO SCH (08:52)
[2023-10-13] MEDS: Pantoprazole DR 40 MG TAB PO SCH (08:52)
[2023-10-13] MEDS ORDERED: Pravastatin Sodium 20 MG TAB PO SCH (09:00)
[2023-10-13 13:19] VITALS: BP 153/72; TEMP 97.5
== END 2023-10-13 13:44 | disposition home or self-care (01) | DRG 309 ==
LOC: ERS 14:53 → SUATTDRO 14:53 → ERHOLD 17:46 → 2SE 20:12 → OBSVTOIN 20:57
PROVIDERS: ADMIT Internal Medicine; ATTEND Internal Medicine
DX: R00.1 Bradycardia, unspecified (principal); E22.2 Syndrome of inappropriate secretion of antidiuretic hormone; E87.20 Acidosis, unspecified; I13.0 Hypertensive heart and chronic kidney disease with heart failure and stage 1 through stage 4 chronic kidney disease, or unspecified chronic kidney disease; I50.32 Chronic diastolic (congestive) heart failure; N18.30 Chronic kidney disease, stage 3 unspecified; I48.0 Paroxysmal atrial fibrillation; T50.995A Adverse effect of other drugs, medicaments and biological substances, initial encounter; E11.22 Type 2 diabetes mellitus with diabetic chronic kidney disease; E83.42 Hypomagnesemia; K59.09 Other constipation; E78.5 Hyperlipidemia, unspecified; D53.9 Nutritional anemia, unspecified; D63.8 Anemia in other chronic diseases classified elsewhere; Z88.0 Allergy status to penicillin; Z79.899 Other long term (current) drug therapy; Z79.82 Long term (current) use of aspirin; Z79.84 Long term (current) use of oral hypoglycemic drugs; Z90.710 Acquired absence of both cervix and uterus; E88.09 Other disorders of plasma-protein metabolism, not elsewhere classified; E87.8 Other disorders of electrolyte and fluid balance, not elsewhere classified; Z90.49 Acquired absence of other specified parts of digestive tract
CPT/HCPCS: 36415; 36416; 70450; 70551; 71045; 80048; 80053; 80061; 81001; 83036; 83735; 83880; 83930; 83935; 84300; 84443; 84484; 85025; 93005; J1644; J3475; J7050

== ENCOUNTER 2025-01-15 12:56 | Emergency (ER) | payer OTHER ==
[2025-01-15] MEDS ORDERED: Iopamidol-370 76% 500 ML MDV (1 ML CHARGE) ONE (13:07)
[2025-01-15 14:18] LABS: #Basophils 0.05 10x3/uL (0.0-0.2); #Eosinophils 0.31 10x3/uL (0.0-0.7); #Monocytes 0.55 10x3/uL (0.11-0.59); #Neutrophils 5.24 10x3/uL (1.40-6.50); %Basophils 0.7 % (0.0-1.0); %Eosinophils 4.1 % (0.0-10.0); %Lymphocytes 17.4 % (21.0-51.0); %Monocytes 7.3 % (0.0-10.0); %Neutrophils 70.0 % (42.0-75.0); Hematocrit 35.0 % (36.0-47.0); Hemoglobin 10.7 g/dL (12.0-16.0); Mean Corpuscular Hemoglobin 27.5 pg (27.0-31.0); Mean Corpuscular Volume 90.0 fL (78.0-98.0); Platelet Count 221 10x3/uL (130-400); Red Blood Cell (RBC) Count 3.89 mill/uL (4.20-5.40); White Blood Cell (WBC) Count 7.49 10x3/uL (4.8-10.8)
[2025-01-15 14:22] LABS: Bacteria/HPF None Seen HPF (None Seen); CAUTI Indications for Culture Dysuria,urgency,freq; Glucose, Urine (Dipstick) Normal (Negative); Leukocyte 75 Leu/uL (Negative); Protein, Urine (Dipstick) Negative (Neg-Trace); RBC/HPF 0-3 HPF (0-3); Specific Gravity, Urine 1.007 (1.002-1.036); WBC/HPF 0-3 HPF (0-3)
[2025-01-15 14:24] LABS: Urine Culture Reflex No No
[2025-01-15 14:45] LABS: ALT (SGPT) 12 U/L (Less than 34); AST (SGOT) 21 U/L (11-34); Albumin 4.1 g/dL (3.1-4.5); Alkaline Phosphatase 123 U/L (40-110); Anion Gap 16 mmol/L (10-20); BUN (Urea Nitrogen) 24 mg/dL (9.8-20.1); Bilirubin, Total 0.3 mg/dL (0.3-1.2); Calc. Creatinine Clearance 0 mL/min (70-130); Calcium 8.9 mg/dL (7.8-10.44); Carbon Dioxide 27 mmol/L (23-31); Chloride 100 mmol/L (98-107); Globulin 2.5 g/dL (2.4-3.5); Glucose 126 mg/dL (83-110); Lipase 14 U/L (8-78); Potassium 4.1 mmol/L (3.5-5.1); Sodium 139 mmol/L (136-145)
[2025-01-15] MEDS ORDERED: cefTRIAXone (ROCEPHIN) 500 MG VIAL ONE (16:19)
[2025-01-15] MEDS ORDERED: Lidocaine 1% PF 5 ML VIAL ONE (16:19)
[2025-01-15] MEDS ORDERED: cefTRIAXone (ROCEPHIN) 1 GM VIAL ONE (16:30)
== END 2025-01-15 17:30 | disposition home or self-care (01) ==
LOC: ERS 12:56
DX: N39.0 Urinary tract infection, site not specified (principal); M54.50 Low back pain, unspecified; E11.9 Type 2 diabetes mellitus without complications; E78.00 Pure hypercholesterolemia, unspecified; I11.0 Hypertensive heart disease with heart failure; I50.9 Heart failure, unspecified; I25.10 Atherosclerotic heart disease of native coronary artery without angina pectoris; Z79.899 Other long term (current) drug therapy; Z79.84 Long term (current) use of oral hypoglycemic drugs
CPT/HCPCS: 74177; 80053; 81001; 83690; 85025; 87086; J0696 ×2; 96365; Q9967